=== PATIENT | male | born 1945 | race Hispanic/Latino ===

== ENCOUNTER 2016-09-25 14:49 | Inpatient (IN) | payer MEDICARE, OTHER ==
[2016-09-25 15:07] VITALS: BMI 24.3
--- NOTE | 2016-09-25 15:45 | ED PDOC ---
Arrival/HPI - General Chief Complaint: Weakness/Neurological Deficit Time Seen by Provider: 09/25/16 14:58 Historian: Patient, Nematologist (video photographer; Vincent [id number]) - History of Present Illness Narrative History of Present Illness (Text): 09/25/16 15:41 71yr old male presents today sent in by state worker for evaluation. pt denies any complaints. no CP or SOB. no vomiting/diarrhea. no abdominal pain. no dizziness or weakness. denies urinary symptoms. pt states a state worker came to his house and told him to go into the ambulance and come to the ER. Time/Duration: Prior to Arrival Past Medical History - Provider Review Nursing Documentation Reviewed: Yes - Travel History Have you recently traveled outside [place] w/in the past 3 mons?: No - Tetanus Immunization Tetanus Immunization: Unknown - Cardiac Hx Cardiac Disorders: Yes (HTN) - Musculoskeletal/Rheumatological Hx Falls: No - Psychiatric Hx Depression: No Hx Emotional Abuse: No Hx Physical Abuse: No Hx Substance Use: No - Suicidal Assessment Feels Threatened In Home Enviroment: No Family/Social History - Physician Review Nursing Documentation Reviewed: Yes Family/Social History: Unknown Family HX Smoking Status: Former Smoker Hx Alcohol Use: No Hx Substance Use: No Substance used: denies Hx Substance Use Treatment: No Allergies/Home Meds Allergies/Adverse Reactions: Allergies No Known Allergies Allergy (Verified 11/20/11 02:12) Review of Systems - Review of Systems Constitutional: absent: Fatigue, Fevers Respiratory: absent: SOB, Cough Cardiovascular: absent: Chest Pain, Palpitations Gastrointestinal: absent: Abdominal Pain, Nausea, Vomiting Genitourinary Male: absent: Dysuria Musculoskeletal: absent: Arthralgias, Back Pain, Neck Pain Skin: absent: Rash, Pruritis Neurological: absent: Headache, Dizziness Psychiatric: absent: Anxiety, Depression, Suicidal Ideation Physical Exam Vital Signs Reviewed: Yes Vital Signs Temp Pulse Resp BP Pulse Ox 09/25/16 17:24 93 H 18 118/70 98 09/25/16 15:08 98.8 F 103 H 18 114/71 100 Temperature: Afebrile Blood Pressure: Normal Pulse: Tachycardic Respiratory Rate: Normal Appearance: Positive for: Well-Appearing, Non-Toxic, Comfortable Pain Distress: None Mental Status: Positive for: Alert and Oriented X 3 - Systems Exam Head: Present: Atraumatic Mouth: Present: Moist Mucous Membranes Neck: Present: Normal Range of Motion Respiratory/Chest: Present: Clear to Auscultation, Good Air Exchange. No: Respiratory Distress, Accessory Muscle Use Cardiovascular: Present: Normal S1, S2, Tachycardic. No: Murmurs Abdomen: No: Tenderness, Distention Neurological: Present: GCS=15 Skin: Present: Warm, Dry, Normal Color. No: Rashes Psychiatric: Present: Alert, Oriented x 3 Medical Decision Making ED Course and Treatment: 09/25/16 16:06 71yr old male presents sent in by [employer] worker for inhabitable housing, no abdominal pain. no vomiting. pt denies any complaints. tachycardic on initial vitals. bp wnl. cbc; wnl cmp; bun; 22/cr1.2 cxr; no infiltrate or effusion UA: + leukocytes, + moderate bacteria blood cultures pending rocephin started IV for UTI. 09/25/16 18:[address] damian phelan; accepts admission. impression; UTI admit med/surg; - Lab Interpretations Lab Results: 09/25/16 16:40 09/25/16 16:40 Lab Results 09/25/16 17:20: Urine Color Yellow, Urine Appearance Clear, Urine pH 8.0, Ur Specific [place] 1.015, Urine Protein Trace H, Urine Glucose (UA) Negative, Urine Ketones Negative, Urine Blood Trace-intact H, Urine Nitrate Negative, Urine Bilirubin Negative, Urine Urobilinogen 0.2, Ur Leukocyte Esterase Trace H , Urine RBC 5 - 10, Urine WBC 2 - 5, Ur Epithelial Cells 1 - 3, Urine Bacteria Mod 09/25/16 16:40: WBC 9.0, RBC 4.40, Hgb 12.9 L, Hct 39.0 L, MCV 88.6, MCH 29.3, MCHC 33.1, RDW 14.9 H, Plt Count 236, MPV 9.5, Gran % 57.9, Lymph % (Auto) 29.7 , [place] % (Auto) 10.2 H, Eos % (Auto) 1.9, Baso % (Auto) 0.3, Gran # 5.23, Lymph # 2.7, [place] # 0.9 H, Eos # 0.2, Baso # 0.03 09/25/16 16:40: Sodium 143, Potassium 4.4, Chloride 102, Carbon Dioxide 31, Anion Gap 14, BUN 22 H, Creatinine 1.2, Est GFR ( Amer) > 60, Est GFR ( Non-Af Amer) 60, Random Glucose 147 H, Calcium 8.9, Total Bilirubin 0.6, AST 40 , ALT 29, Alkaline Phosphatase 124, Total Protein 7.7, Albumin 4.4, Globulin 3.3 , Albumin/Globulin Ratio 1.3 - RAD Interpretation Radiology Orders: 09/25/16 15:29 CHEST PORTABLE [RAD] Stat Disposition/Present on Arrival - Present on Arrival Any Indicators Present on Arrival: No History of DVT/PE: No History of Uncontrolled Diabetes: No Urinary Catheter: No History of Decub. Ulcer: No History Surgical Site Infection Following: None - Disposition Have Diagnosis and Disposition been Completed?: Yes Diagnosis: Urinary tract infection Disposition: HOSPITALIZED Disposition Time: 18:27 Patient Plan: Admission Patient Problems: Current Active Problems Problem Status Onset Urinary tract infection Acute Condition: FAIR Referrals: PCP,NO [Primary Care Provider] - Follow up with primary
[2016-09-25 17:01] LABS: BASO # 0.03 K/mm3 (0.0-2.0); BASO % 0.3 % (0.0-3.0); EOS # 0.2 (0.0-0.7); EOS % 1.9 % (1.5-5.0); GRAN # 5.23 (1.4-6.5); GRAN % 57.9 % (50.0-68.0); HEMOGLOBIN 12.9 gm/dL (14.0-18.0); LYMPH # 2.7 (1.2-3.4); LYMPH % 29.7 % (22.0-35.0); MEAN CELL VOLUME 88.6 fL (80.0-105.0); MEAN CORPUSCULAR HEMOGLOBIN 29.3 pg (25.0-35.0); MEAN CORPUSCULAR HGB CONC 33.1 g/dl (31.0-37.0); MEAN PLATELET VOLUME 9.5 fl (7.0-11.0); MONO # 0.9 (0.1-0.6); MONO % 10.2 % (1.0-6.0); PLATELET COUNT 236 10^3/uL (120.0-450.0); RED CELL DISTRIBUTION WIDTH 14.9 % (11.5-14.5)
[2016-09-25 17:08] LABS: ALB/GLOB RATIO 1.3 (1.1-1.8); ALBUMIN 4.4 g/dL (3.0-4.8); ALT/SGPT 29 U/L (7-56); AST/SGOT 40 U/L (15-59); BLOOD UREA NITROGEN 22 mg/dL (7-21); CALCIUM 8.9 mg/dL (8.4-10.5); GFR AFRICAN-AMERICAN > 60; GFR NON-AFRICAN AMERICAN 60
[2016-09-25 17:32] LABS: URINE APPEARANCE CLEAR (CLEAR); URINE BILIRUBIN NEGATIVE (NEGATIVE); URINE BLOOD TRACE-INTACT (NEGATIVE); URINE COLOR YELLOW (YELLOW); URINE GLUCOSE (UA) NEGATIVE (NEGATIVE); URINE LEUKOCYTE ESTERASE TRACE Leu/uL (NEGATIVE); URINE NITRATE NEGATIVE (NEGATIVE); URINE PROTEIN TRACE mg/dL (<30 mg/dL); URINE UROBILINOGEN 0.2 E.U./dL (<1 E.U./dL)
[2016-09-25 18:06] LABS: URINE BACTERIA MOD (NEG)
[2016-09-25] MEDS ORDERED: cefTRIAXone 1 gm 1 GM/100 ML BAG IVPB STA (18:47)
--- NOTE | 2016-09-25 20:46 | CARD ---
APPROVED REPORT EKG Measurement Heart [id number] <Conclusion> Normal sinus rhythm Biatrial enlargement Incomplete right bundle branch block Left ventricular hypertrophy with repolarization abnormality Abnormal ECG
--- NOTE | 2016-09-26 07:43 | RAD ---
HISTORY: social eval, COMPARISON: 04/07/2013. FINDINGS: LUNGS: The lungs are hyperinflated and there is peribronchial thickening with chronic changes in both lungs. No lobar pneumonia. PLEURA: No significant pleural effusion identified, no pneumothorax apparent. CARDIOVASCULAR: Normal. OSSEOUS STRUCTURES: No significant abnormalities. VISUALIZED UPPER ABDOMEN: Normal. OTHER FINDINGS: None. IMPRESSION: No acute findings. COPD.
--- NOTE | 2016-09-26 10:38 | CP.PCM.PN ---
Subjective - Date & Time of Evaluation Date of Evaluation: 09/26/16 Time of Evaluation: 02:00 - Subjective Subjective: S:Requested a sleeping pill. Has no other complaints. Denies CP,SOB. Medical record was reviewed. O: Last Vital Signs 3 Temp 98.2 F 09/25/16 22:11 Pulse 85 09/25/16 22:11 Resp 16 09/25/16 22:11 BP 125/86 09/25/16 22:11 Pulse Ox 95 09/25/16 19:58 Awake , alert, not in distress. A:Adjustment insomnia. P:Benadryl 25 mg po stat. Objective - Vital Signs/Intake and Output Vital Signs (last 24 hours): Temp Pulse Resp BP Pulse Ox 98.2 F 85 16 125/86 95 09/25/16 22:11 09/25/16 22:11 09/25/16 22:11 09/25/16 22:11 09/25/16 19:58 Intake and Output: 09/26/16 09/26/16 06:59 18:59 Intake Total 360 Balance 360
[2016-09-26] MEDS: cefTRIAXone 1 gm 1 GM/100 ML BAG IV SCH (14:58)
[2016-09-26] MEDS: Sodium Chloride 0.45% 1,000 ML IV SCH (14:59)
--- NOTE | 2016-09-27 05:24 | PN ---
DATE: 09/26/2016 SUBJECTIVE: The patient was seen this Sunday at noon hour in room 562, bed #1. He is sitting at the edge of the bed, somewhat unkempt with a long unshaven bailey. Seen and admitted yesterday by for urinary tract infection, altered mental status, back pain and pyelonephritis. He came to the emergency room at the insistence of the family and local case workers from [facility]. The patient was found to be in local [facility] in poor living conditions with poor personal hygiene and unkempt in a room that was equally poorly maintained. The patient was reportedly febrile, seen complaining with foul smell of odor of urine and back pain with right-sided CVA tenderness. Seen in the emergency room admitted with urinary tract infection suspected pyelonephritis. He was given a dose of antibiotics. Today, antibiotics continue with Rocephin and IV fluids. He was not taking any prior medications. PHYSICAL EXAMINATION GENERAL: He is awake and alert. Barely speaking, complaining of hoarse voice from not having spoken to anyone for several days. He has an voracious appetite and is eating . NECK: No nodes. Thyroid is not palpable. HEART: Not tachycardiac. LUNGS: Shows good aeration in right and left. EXTREMITIES: Shows no edema. IMPRESSION: 1. Altered mental status, unkempt and to self. 2. Urinary tract infection, suspected pyelonephritis. PLAN: Continue IV antibiotics and IV fluids for now. Await cultures, repeat urinalysis, morning labs. Continue IV fluids. Case discussed with counseling case manager, social science manager for disposition of plan. Isaac Cai MD
[2016-09-27 07:15] LABS: BASO # 0.05 K/mm3 (0.0-2.0); BASO % 0.6 % (0.0-3.0); EOS # 0.1 (0.0-0.7); EOS % 1.2 % (1.5-5.0); GRAN # 5.55 (1.4-6.5); GRAN % 64.7 % (50.0-68.0); HEMOGLOBIN 13.7 gm/dL (14.0-18.0); LYMPH # 2.1 (1.2-3.4); LYMPH % 24.2 % (22.0-35.0); MEAN CORPUSCULAR HEMOGLOBIN 29.2 pg (25.0-35.0); MEAN CORPUSCULAR HGB CONC 33.6 g/dl (31.0-37.0); MEAN PLATELET VOLUME 9.5 fl (7.0-11.0); MONO # 0.8 (0.1-0.6); MONO % 9.3 % (1.0-6.0); PLATELET COUNT 243 10^3/uL (120.0-450.0); RBC 4.69 10^6/uL (3.5-6.1); RED CELL DISTRIBUTION WIDTH 14.7 % (11.5-14.5); WHITE BLOOD COUNT 8.6 10^3/ul (4.5-11.0)
[2016-09-27 09:02] LABS: BLOOD UREA NITROGEN 19 mg/dL (7-21); CALCIUM 9.4 mg/dL (8.4-10.5); GFR AFRICAN-AMERICAN > 60; GFR NON-AFRICAN AMERICAN > 60
[2016-09-27 09:26] LABS: URINE BILIRUBIN NEGATIVE (NEGATIVE); URINE BLOOD SMALL (NEGATIVE); URINE GLUCOSE (UA) NEGATIVE (NEGATIVE); URINE LEUKOCYTE ESTERASE NEGATIVE Leu/uL (NEGATIVE); URINE NITRATE NEGATIVE (NEGATIVE); URINE PROTEIN TRACE mg/dL (<30 mg/dL); URINE UROBILINOGEN 0.2 E.U./dL (<1 E.U./dL)
[2016-09-27 09:29] LABS: URINE APPEARANCE CLEAR (CLEAR); URINE COLOR YELLOW (YELLOW)
[2016-09-27 09:45] LABS: URINE BACTERIA TRACE (NEG); URINE EPITHELIAL CELLS 0 - 2 /hpf (0-5); URINE WBC 0 - 2 /hpf (0-6)
[2016-09-27] MEDS: cefTRIAXone 1 gm 1 GM/100 ML BAG IV SCH (09:56)
[2016-09-27] MEDS: Sodium Chloride 0.45% 1,000 ML IV SCH (15:00)
[2016-09-28 07:46] VITALS: RESP 20
[2016-09-28] MEDS: cefTRIAXone 1 gm 1 GM/100 ML BAG IV SCH (10:14)
--- NOTE | 2016-09-28 13:13 | PN ---
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 He was admitted on the 25/09/2016 for a urinary tract infection, possible pyelonephritis. Social workers have found him to be very unkempt, as was his apartment at the local [facility], was rather filthy, smelling of urine. The patient himself was disheveled. The patient was admitted for treatment of his urinary tract infection and from [facility] evaluation of a possible pyelonephritis. Plans were also that upon discharge, he is to be sent to a subacute rehab facility for speech therapy, physical therapy, occupational therapy, and then possible long-term placement. Today, when seen, the patient is sitting up at bedside. He is awake, alert, and oriented. He is frustrated, though he is aware of being transferred tomorrow to the subacute care facility. He is having difficulty formulating questions, but seems to be concerned about the mode of transportation as well as his personal belongings being transported there. The patient was reassured as best I could. The director of [facility], the addiction social worker from [facility], [place] [facility], and a close friend who speaks [place] as a roll tester will be allowed to his apartment to gather up belongings. Of note, I contacted his ex- Mariluz and told her about his pending change of address. She was thankful. She will be keeping contact with him. This morning, the laboratory studies show the white blood cell count to be 8.6, hemoglobin and hematocrit were 13.7 and 40.8 respectively. Platelet count was 243. Sodium is 142, creatinine is 1.0, blood urea nitrogen is 19, potassium is 3.5. Blood cultures were negative and urine cultures were negative. His chest x-ray showed no acute disease, but was positive for COPD and his EKG shows biatrial enlargement and incomplete right bundle branch block, left ventricular hypertrophy, and regular sinus rhythm. We are continuing with his metoprolol 25 mg twice a day, nicotine patch once a day and lisinopril 10 mg once a day. His ceftriaxone has been discontinued and the patient is to be discharged to a subacute care facility in the morning. Omid Cai MD
[2016-09-28 18:12] VITALS: BP 150/92; PULSE 80; TEMP 97.6; O2SAT 90
--- NOTE | 2016-09-28 20:01 | HP ---
HISTORY OF PRESENT ILLNESS: The patient is a 71-year-old male who was admitted on 09/25/2016 with a urinary tract infection and suspect pyelonephritis. The patient was found to be living in very poor living conditions at the local [facility]. He was unkempt. His room and his clothing smelled of urine. He was reportedly febrile. He was complaining of foul smelling urine, low back pain, right sided CVA tenderness, and dysuria. This had been going on for about a week; therefore, a social welfare administrator from the office on visited the patient and strongly suggested hospitalization. The plan was also put into effect that the patient be discharged to a subacute rehab facility post discharge. PAST MEDICAL HISTORY: I have known the patient since 1985. He did have a problem with alcohol abuse and undergoing ETOH rehab in 1989. In 1990, he fell down an elevator shaft fracturing both legs. He was hospitalized at [facility]. He suffered a myocardial infarction at that time as well. He had been living at the local [facility] since 2005. In 2007, he suffered a cerebrovascular accident, which left him moderately expressively aphasic and with a gait disturbance. He is also known to have a history of low back pain, insomnia and coronary artery disease as mentioned above. He has not taken any alcoholic beverage for the past several years. He continues to smoke approximately 1 to 2 packs a day. He is , however his ex- keeps in contact with him. She was actually out shopping for clothes with him over the past weekend. I last saw the patient in office visit in 05/2016. ALLERGIES: THE PATIENT HAS NO KNOWN MEDICAL ALLERGIES. MEDICATIONS AT THE TIME OF ADMISSION: Included lorazepam 1 mg at bedtime, simvastatin 20 mg p.o. everyday, metoprolol succinate 25 mg p.o. everyday, amlodipine 5 mg p.o. everyday, temazepam 30 mg p.o. q.h.s., Aricept 10 mg p.o everyday. FAMILY HISTORY: Text. SOCIAL HISTORY: Text. REVIEW OF SYSTEMS: Text. PHYSICAL EXAMINATION: GENERAL: In 05/2016, he weighed 149 pounds and stood 72 inches tall. VITAL SIGNS: When seen in the emergency room his blood pressure was 114/71, heart rate 103, respirations were 18, and he was afebrile. HEENT: Examination of the head, eyes, ears, nose, and throat are unremarkable. The patient has a full long bailey. NECK: Supple with no lymphadenopathy. No goiter. LUNGS: Clear to auscultation and percussion. ABDOMEN: Soft and nontender. He had some CVA tenderness versus paralumbar tenderness from chronic back pain. EXTREMITIES: Free of cyanosis, clubbing or edema. NEUROLOGICALLY: He was awake, alert, and oriented. He had a moderate degree of expressive aphasia. His gait was halting. LABORATORY STUDIES: Revealed a white blood cell count of 9.0, hemoglobin was 12.9, hematocrit 39.0. Sodium was 143, potassium 4.4. Blood urea nitrogen was 22, creatinine 1.2. He had trace amount of urine in his blood and leukocyte esterase was also present. He had 2 to 5 white blood cells per high power field and 5 to 10 red blood cells for high power field. He had a moderate amount of bacteria in the urine. ASSESSMENT AND PLAN: So, the patient is admitted with urinary tract infection and possible pyelonephritis. He is to be treated with intravenous antibiotics and arrangements are to be made for a transfer to subacute care for occupational therapy and physical therapy after he has stabilized. Omid Cai MD
--- NOTE | 2016-09-29 21:43 | DS ---
SUMMARY: This is a 71-year-old man known to my office for sometime. The patient presented to the emergency room after being found at his residence in the local [facility]. The place was quite unkempt and disheveled. He was reportedly febrile at that time, reeking of foul smelling urine. He was admitted with urinary tract infection and possible right-sided pyelo was diagnosed and he was admitted. He was given IV fluids and antibiotics. Over the next two to three days, he improved dramatically. Cultures were unrevealing. His white count remained normal. Initial bacteria in urine resolved. He improved clinically, allowed the staff to help him with hygiene including hair cut and shaving his bailey. On the date of discharge, today, 09/28/2016, he looked and felt wonderful. He was awake, alert, more of his baseline in usual status and ready for discharge to subacute rehab facility. FINAL DISCHARGE DIAGNOSES: Urinary tract infection, suspected right-sided pyelonephritis; altered mental status; and protein-calorie malnutrition. Isaac Cai MD
== END 2016-09-28 19:57 | DRG 690 ==
LOC: ED 14:49 → ERH 18:48 → 5RNO 21:09
PROVIDERS: ADMIT Internal Medicine; ATTEND Internal Medicine
DX: N12 Tubulo-interstitial nephritis, not specified as acute or chronic (principal); J44.9 Chronic obstructive pulmonary disease, unspecified; I11.9 Hypertensive heart disease without heart failure; I45.10 Unspecified right bundle-branch block; F10.21 Alcohol dependence, in remission; F51.02 Adjustment insomnia; I25.10 Atherosclerotic heart disease of native coronary artery without angina pectoris; I25.2 Old myocardial infarction; I51.7 Cardiomegaly; I69.320 Aphasia following cerebral infarction; Z79.899 Other long term (current) drug therapy; F17.210 Nicotine dependence, cigarettes, uncomplicated; R40.2412 Glasgow coma scale score 13-15, at arrival to emergency department; Z87.81 Personal history of (healed) traumatic fracture; R41.82 Altered mental status, unspecified

== ENCOUNTER 2017-11-23 17:19 | Inpatient (IN) | payer MEDICARE, MEDICAID ==
--- NOTE | 2017-11-23 17:37 | ED PDOC ---
Arrival/HPI - General Time Seen by Provider: 11/23/17 17:23 Historian: Patient, Long Term, EMS EM Caveat: Dementia - History of Present Illness Narrative History of Present Illness (Text): 11/23/17 17:34 72 yo male with h/o HTN, COPD, Dementia, Major Depressive Disorder, Generalized Muscle Weakness, presents to the ED from [facility] due to a CXR that showed a Pneumothorax. As per Diya Dai RN, the Long Term reported that he was coughing a lot so they got an Xray and that's how it was discovered. No reported fever. PMD: Dr. Aguayo Past Medical History - Provider Review Nursing Documentation Reviewed: Yes - Tetanus Immunization Tetanus Immunization: Unknown - Cardiac Hx Hypertension: Yes - Pulmonary Hx Respiratory Disorders: No - Neurological HX Cerebrovascular Accident: Yes (expressive aphasia) - HEENT Hx HEENT Disorder: No - Renal Hx Renal Disorder: No - Endocrine/Metabolic Hx Endocrine Disorders: No - Hematological/Oncological Hx Blood Disorders: No - Integumentary Hx Dermatological Disorder: No - Musculoskeletal/Rheumatological Hx Falls: No - Gastrointestinal Hx Gastrointestinal Disorders: No - Genitourinary/Gynecological Hx Genitourinary Disorders: No - Psychiatric Hx Depression: No Hx Emotional Abuse: No Hx Physical Abuse: No Hx Substance Use: No - Suicidal Assessment Feels Threatened In Home Enviroment: No Family/Social History Family/Social History: Unknown Family HX Smoking Status: Former Smoker Hx Alcohol Use: No Hx Substance Use: No Substance used: denies Hx Substance Use Treatment: No Allergies/Home Meds Allergies/Adverse Reactions: Allergies No Known Allergies Allergy (Verified 11/20/11 02:12) Review of Systems - Review of Systems Systems not reviewed;Unavailable: Dementia Physical Exam Vital Signs Reviewed: Yes Vital Signs Temp Pulse Resp BP Pulse Ox 11/23/17 17:47 97.6 F 71 21 110/84 99 Temperature: Afebrile Blood Pressure: Normal Pulse: Regular Respiratory Rate: Normal Appearance: Positive for: Well-Appearing, Non-Toxic, Comfortable Pain Distress: None Mental Status: Positive for: Alert and Oriented X 3 - Systems Exam Head: Present: Atraumatic, Normocephalic Pupils: Present: PERRL Extroacular Muscles: Present: EOMI Conjunctiva: Present: Normal Mouth: Present: Moist Mucous Membranes Neck: Present: Normal Range of Motion Respiratory/Chest: Present: Clear to Auscultation, Good Air Exchange, Other ( decreased breathe sounds on left). No: Respiratory Distress, Accessory Muscle Use, Wheezes, Rales, Retracting, Rhonchi Cardiovascular: Present: Regular Rate and Rhythm, Normal S1, S2. No: Murmurs Abdomen: No: Tenderness, Distention, Peritoneal Signs Back: Present: Normal Inspection Upper Extremity: Present: Normal Inspection. No: Cyanosis, Edema Lower Extremity: Present: Normal Inspection. No: Edema Neurological: Present: GCS=15, CN II-XII Intact, Speech Normal Skin: Present: Warm, Dry, Normal Color. No: Rashes Psychiatric: Present: Alert, Oriented x 3, Normal Concentration Medical Decision Making ED Course and Treatment: 11/23/17 17:38 72 yo male with h/o COPD, HTN, Dementia, MDD, presents with Coughing and reported Pneumothorax -- STAT CXR -- Oxygen 2 L -- Labs 11/23/17 17:46 CXR: Left lower Pneumothorax Paged Transition Specialist and Dr. Aguayo. EKG: NSR at [address] elevations, nl intervals. 11/23/17 18:08 Chest X-ray reviewed by radiologist, shows: Approximately 40% left pneumothorax. Concordant results with the preliminary interpretation rendered by the emergency department physician\PA at the conclusion of the procedure. Procedure was completed at 17:32. Preliminary report provided by emergency department physician at 17:48. Final interpretation 18:01. 11/23/17 18:27 Case discussed with hvac residential service technician Vazquez who will come and see the patient. CT Chest ordered. Discussed case with Cardiothoracic Surgeon Dr. Vinayak Garcia who will follow the case with the Transition Specialist. Case discussed with Dr. Aguayo who will admit to her service. 11/23/17 19:01 CT Chest reviewed by radiologist, shows: Confirmation of pneumothorax identified on recent chest x-ray. There may be a slight component of tension as there is shift of mediastinal structures to the contralateral side. Additional benign and/or incidental findings described above. Critical results read protocol Findings conveyed to the referring physician in the emergency department. Study completed 18:36. Verbal results provided 18:54 Dr. Shukla, Transition Specialist, came to see patient and will complete Chest Tube after CT. 11/23/17 19:02 Case signed out to Dr. Escalera to follow up Transition Specialist plan. - Critical Care Critical Care Minutes: 30 minutes - Lab Interpretations Lab Results: 11/23/17 15:34 11/23/17 17:34 Lab Results 11/23/17 17:34: Sodium 141, Potassium 4.1, Chloride 106, Carbon Dioxide 28, Anion Gap 11, BUN 26 H, Creatinine 1.2, Est GFR ( Amer) > 60, Est GFR ( Non-Af Amer) 59, Random Glucose 103, Calcium 9.0, Magnesium 2.0 11/23/17 16:45: Blood Type Pending, Antibody Screen Pending, BBK History Checked No verified bt 11/23/17 15:34: PT 10.6, INR 0.93, APTT 32.7 11/23/17 15:34: WBC 9.4, RBC 4.58, Hgb 13.6 L, Hct 40.8 L, MCV 89.1, MCH 29.7, MCHC 33.3, RDW 13.6, Plt Count 265, MPV 9.6, Gran % 60.6, Lymph % (Auto) 27.3, [place] % (Auto) 9.9 H, Eos % (Auto) 1.9, Baso % (Auto) 0.3, Gran # 5.67, Lymph # ( Auto) 2.6, [place] # (Auto) 0.9 H, Eos # (Auto) 0.2, Baso # (Auto) 0.03 - RAD Interpretation Radiology Orders: 11/23/17 17:27 CHEST PORTABLE [RAD] Stat 11/23/17 18:19 CHEST W/O CONTRAST [CT] Stat Disposition/Present on Arrival - Present on Arrival Any Indicators Present on Arrival: No History of DVT/PE: No History of Uncontrolled Diabetes: No Urinary Catheter: No History Surgical Site Infection Following: None - Disposition Have Diagnosis and Disposition been Completed?: Yes Diagnosis: Pneumothorax on left Disposition: HOSPITALIZED Disposition Time: 17:47 Patient Plan: Admission Patient Problems: Current Active Problems Problem Status Onset Pneumothorax on left Acute Condition: GUARDED Referrals: La Aguayo MD [Primary Care Provider] - Follow up with primary
[2017-11-23 17:54] VITALS: BMI 21.9
--- NOTE | 2017-11-23 18:04 | RAD ---
Date of service: 11/23/2017 HISTORY: Shortness of breath COMPARISON: No prior. FINDINGS: LUNGS: No active pulmonary disease. PLEURA: Primarily basilar pneumothorax on the left. This is approximately 40% of left lung volume. No evidence of tension pneumothorax. CARDIOVASCULAR: No radiographic findings to suggest acute or significant cardiovascular disease. OSSEOUS STRUCTURES: No significant abnormalities. VISUALIZED UPPER ABDOMEN: Normal. OTHER FINDINGS: None. IMPRESSION: Approximately 40% left pneumothorax. Concordant results with the preliminary interpretation rendered by the emergency department physician procedure. Procedure was completed at 17:32. Preliminary report provided by emergency department physician at 17:48. Final interpretation 18:01.
[2017-11-23 18:07] LABS: INR 0.93; PARTIAL THROMBOPLASTIN TIME 32.7 Seconds (25.1-36.5); PROTHROMBIN TIME 10.6 SECONDS (9.4-12.5)
[2017-11-23 18:09] LABS: BASO # 0.03 K/mm3 (0.0-2.0); BASO % 0.3 % (0.0-3.0); EOS # 0.2 (0.0-0.7); EOS % 1.9 % (1.5-5.0); GRAN # 5.67 (1.4-6.5); GRAN % 60.6 % (50.0-68.0); HEMOGLOBIN 13.6 g/dL (14.0-18.0); LYMPH # 2.6 (1.2-3.4); LYMPH % 27.3 % (22.0-35.0); MEAN CELL VOLUME 89.1 fl (80.0-105.0); MEAN CORPUSCULAR HEMOGLOBIN 29.7 pg (25.0-35.0); MEAN CORPUSCULAR HGB CONC 33.3 g/dl (31.0-37.0); MEAN PLATELET VOLUME 9.6 fl (7.0-11.0); MONO # 0.9 (0.1-0.6); MONO % 9.9 % (1.0-6.0); RBC 4.58 10^6/uL (3.5-6.1); RED CELL DISTRIBUTION WIDTH 13.6 % (11.5-14.5); WHITE BLOOD COUNT 9.4 10^3/ul (4.5-11.0)
[2017-11-23 18:34] LABS: BLOOD UREA NITROGEN 26 mg/dL (7-21); GFR NON-AFRICAN AMERICAN 59
--- NOTE | 2017-11-23 18:57 | CT ---
Date of service: 11/23/2017 PROCEDURE: CT Chest without contrast HISTORY: pneumothorax rule out COMPARISON: November 23, 2017. Plain film radiographs documenting left pneumothorax. TECHNIQUE: Contiguous axial images were obtained through the chest without intravenous contrast enhancement. Sagittal and coronal reconstructions were performed. Radiation dose (DLP): 295.57 mGy-cm. This CT exam was performed using one or more of the following dose reduction techniques: Automated exposure control, adjustment of the mA and/or kV according to patient size, and/or use of iterative reconstruction technique. FINDINGS: LUNGS: The left lung is compressed by the 40-50% left pneumothorax. No additional underlying pulmonary abnormalities are apparent. There appears to be shift mediastinal structures to the right suggesting AA component of tension pneumothorax. Biapical scarring identified. MEDIASTINUM: Unremarkable thoracic aorta. No aneurysm. Normal sized heart. Main pulmonary artery unremarkable. No vascular congestion. No lymphadenopathy. PLEURA: No pleural fluid. No pneumothorax. BONES: No fracture. No destructive lesion. UPPER ABDOMEN: Grossly unremarkable. OTHER FINDINGS: None. IMPRESSION: Confirmation of pneumothorax identified on recent chest x-ray. There may be a slight component of tension as there is shift of mediastinal structures to the contralateral side. Additional benign and/or incidental findings described above. Critical results read protocol Findings conveyed to the referring physician in the emergency department. Study completed 18:36. Verbal results provided 18:54
[2017-11-23] MEDS ORDERED: Morphine 4 mg/ml ISec IVP STA (19:25)
--- NOTE | 2017-11-23 20:22 | CP.PCM.CON ---
<Blayne Escalera - Last Filed: 11/23/17 20:51> Meds Allergies/Adverse Reactions: Allergies Allergy/AdvReac Type Severity Reaction Status Date / Time No Known Allergies Allergy Verified 11/20/11 02:12 - Medications Medications: Current Medications Morphine Sulfate (Morphine) 2 mg IVP Q4H PRN PRN Reason: Pain, moderate (4-7) Results - Vital Signs Recent Vital Signs: Last Vital Signs Temp 97.6 F 11/23/17 19:18 Pulse 69 11/23/17 19:18 Resp 20 11/23/17 19:18 BP 144/57 L 11/23/17 19:18 Pulse Ox 96 11/23/17 19:18 - Labs Result Diagrams: 11/23/17 15:34 11/23/17 17:34 <Amelia Gardiner - Last Filed: 11/24/17 07:29> History of Present Illness - History of Present Illness History of Present Illness: Thoracic Surgery - Dr. Garcia 72M w/ hx of HTN, COPD, Dementia, Depression, who was brought to the ED from [facility] after CXR done there showed a Left Pneumothorax. Pt was reportedly developing a worsening cough at the [facility] and this is the reason that CXR was odrdered. Upon arrival to the ED pt was sent for CT to further evaluate the location of the Pneumothorax, CT showed a large left sided pneumothorax with mild shift of the mediastinum suggestive of developing tension. Surgery was called for chest tube placement. Patient was unable to give histroy d/t severe dementia. Review of Systems - Review of Systems Systems not reviewed;Unavailable: Altered Mental Status Past Patient History - Infectious Disease Hx of Infectious Diseases: None - Tetanus Immunizations Tetanus Immunization: Unknown - Past Social History Smoking Status: Former Smoker - CARDIAC Hx Hypertension: Yes - PULMONARY Hx Respiratory Disorders: No - NEUROLOGICAL HX Cerebrovascular Accident: Yes (expressive aphasia) - HEENT Hx HEENT Problems: No - RENAL Hx Chronic Kidney Disease: No - ENDOCRINE/METABOLIC Hx Endocrine Disorders: No - HEMATOLOGICAL/ONCOLOGICAL Hx Blood Disorders: No - INTEGUMENTARY Hx Dermatological Problems: No - MUSCULOSKELETAL/RHEUMATOLOGICAL Hx Falls: No - GASTROINTESTINAL Hx Gastrointestinal Disorders: No - GENITOURINARY/GYNECOLOGICAL Hx Genitourinary Disorders: No - PSYCHIATRIC Hx Depression: No Hx Emotional Abuse: No Hx Physical Abuse: No Hx Substance Use: No - SURGICAL HISTORY Hx Surgeries: No Meds - Medications Medications: Current Medications Morphine Sulfate (Morphine) 2 mg IVP Q4H PRN PRN Reason: Pain, moderate (4-7) Physical Exam - Constitutional Appears: No Acute Distress, Cachectic - Head Exam Head Exam: ATRAUMATIC, NORMOCEPHALIC - Respiratory Exam Respiratory Exam: Accessory Muscle Use, Decreased Breath Sounds, Respiratory Distress, NORMAL BREATHING PATTERN Additional comments: left side decreased breath sounds - Cardiovascular Exam Cardiovascular Exam: Tachycardia - Neurological Exam Neurological exam: Alert, Altered - Skin Skin Exam: Dry, Intact Results - Vital Signs Recent Vital Signs: Last Vital Signs Temp 97.6 F 11/23/17 19:18 Pulse 69 11/23/17 19:18 Resp 20 11/23/17 19:18 BP 144/57 L 11/23/17 19:18 Pulse Ox 96 11/23/17 19:18 - Labs Result Diagrams: 11/23/17 15:34 11/23/17 17:34 Assessment & Plan - Assessment and Plan (Free Text) Assessment: 72 yo M w/ spontaneous Left pneumothorax -CT with large pneumothorax, apical blebs -Chest tube placed, continue on low continuous suction -Pain control prn -Daily CXR -Will monitor and possibly plan for surgical bleb resection pending clinical course DW Dr. Jose Gardiner PGY4 Chest Tube Insertion - Chest Tube Placement Indication: Pneumothorax Consent Obtained: Implied D/T Emergency Situation Procedural Sedation: Morphine Procedure Description: Prepped W/Betadine, Sterile Drape Applied, Local Anes Used: Post Insertion Procedure(s): Tube Sutured To Chest Wall, CXR Completed To Confirm Placement, Tube Connected To Suction, No Air Leak Noted
--- NOTE | 2017-11-23 20:55 | CARD ---
APPROVED REPORT Date of service: 11/23/2017 EKG Measurement Heart [id number] [id number] <Conclusion> Normal sinus rhythm Normal ECG
--- NOTE | 2017-11-23 21:06 | ED PDOC ---
Physical Exam Vital Signs Reviewed: Yes Vital Signs Temp Pulse Resp BP Pulse Ox 11/23/17 19:18 97.6 F 69 20 144/57 L 96 11/23/17 17:47 97.6 F 71 21 110/84 99 Temperature: Afebrile Blood Pressure: Normal Pulse: Regular Respiratory Rate: Normal Appearance: Positive for: Well-Appearing, Non-Toxic, Comfortable Pain Distress: None Mental Status: Positive for: Alert and Oriented X 3 Medical Decision Making ED Course and Treatment: 11/23/17 19:20 Patient endorsed to me by Dr. Leach pending pending chest tube insertion by surgical device sales representative. Resident inserted tube, and X-ray has been repeated; Lung has expanded. Patient will be admitted to the floor. - Lab Interpretations Lab Results: 11/23/17 15:34 11/23/17 17:34 Lab Results 11/23/17 17:34: Sodium 141, Potassium 4.1, Chloride 106, Carbon Dioxide 28, Anion Gap 11, BUN 26 H, Creatinine 1.2, Est GFR ( Amer) > 60, Est GFR ( Non-Af Amer) 59, Random Glucose 103, Calcium 9.0, Magnesium 2.0 11/23/17 16:45: Blood Type O POSITIVE, Antibody Screen Negative, BBK History Checked No verified bt 11/23/17 15:34: PT 10.6, INR 0.93, APTT 32.7 11/23/17 15:34: WBC 9.4, RBC 4.58, Hgb 13.6 L, Hct 40.8 L, MCV 89.1, MCH 29.7, MCHC 33.3, RDW 13.6, Plt Count 265, MPV 9.6, Gran % 60.6, Lymph % (Auto) 27.3, [place] % (Auto) 9.9 H, Eos % (Auto) 1.9, Baso % (Auto) 0.3, Gran # 5.67, Lymph # ( Auto) 2.6, [place] # (Auto) 0.9 H, Eos # (Auto) 0.2, Baso # (Auto) 0.03 - RAD Interpretation Radiology Orders: 11/23/17 17:27 CHEST PORTABLE [RAD] Stat 11/23/17 18:19 CHEST W/O CONTRAST [CT] Stat - Medication Orders Current Medication Orders: Morphine Sulfate (Morphine) 2 mg IVP Q4H PRN PRN Reason: Pain, moderate (4-7) Discontinued Medications Morphine Sulfate (Morphine) 4 mg IVP STAT STA Stop: 11/23/17 19:26 Last Admin: 11/23/17 19:39 Dose: 4 mg MAR Pain Assessment Document 11/23/17 19:39 [facility] (Rec: 11/23/17 19:40 [facility] [id number]) Pain Reassessment Is this a pain reassessment? No Sleep Is patient sleeping during reassessment? No Presence of Pain Presence of Pain Yes Pain Scale Used Pain Scale Used Numeric IVP Administration Document 11/23/17 19:39 [facility] (Rec: 11/23/17 19:40 [facility] [id number]) Charges for Administration # of IVP Administrations 1 - Scribe Statement The provider has reviewed the documentation as recorded by the Scribe Js Dailey Provider Scribe Attestation: All medical record entries made by the Scribe were at my direction and personally dictated by me. I have reviewed the chart and agree that the record accurately reflects my personal performance of the history, physical exam, medical decision making, and the department course for this patient. I have also personally directed, reviewed, and agree with the discharge instructions and disposition. Disposition/Present on Arrival - Present on Arrival Any Indicators Present on Arrival: No History of DVT/PE: No History of Uncontrolled Diabetes: No Urinary Catheter: No History of Decub. Ulcer: No History Surgical Site Infection Following: None - Disposition Have Diagnosis and Disposition been Completed?: Yes Diagnosis: Pneumothorax on left Disposition: HOSPITALIZED Disposition Time: 21:00 Patient Plan: Admission Patient Problems: Current Active Problems Problem Status Onset Pneumothorax on left Acute Condition: GUARDED
[2017-11-24 01:06] LABS: IRON 50 ug/dL (45-180)
[2017-11-24 01:07] LABS: HDL CHOLESTEROL 57 mg/dL (29-60)
[2017-11-24] MEDS: Morphine 2 mg/ml ISec IVP PRN ×3 (01:15→16:33)
[2017-11-24 01:16] LABS: % IRON SATURATION 19 % (20-55); TOTAL IRON BINDING CAPACITY 268 ug/dL (261-462)
[2017-11-24 01:17] LABS: LDL CHOLESTEROL 75 mg/dL (0-129)
--- NOTE | 2017-11-24 06:52 | HP ---
CHIEF COMPLAINT: Coughing, shortness of breath, abnormal lung x-ray. HISTORY OF PRESENT ILLNESS: Mr. Teddy Perry is a 72-year-old male with a history of hypertension, COPD, dementia, major depressive episodes, generalized muscle weakness. Patient was a resident of [facility], was coughing, the chest x-ray shows pneumothorax. Then, I had a length of time discussion done with the nursing staff and finally we transferred the patient to emergency room. According to office staff, patient was coughing a lot, so they got an x-ray that shows that they discovered there is pneumothorax. No fever. No chills. No nausea, vomiting, or diarrhea. PAST MEDICAL HISTORY: Hypertension, expressive aphasia, dementia, depression, history of anemia, chronic obstructive pulmonary disease, major depressive episodes, and generalized muscle weakness. FAMILY HISTORY: Father and mother, noncontributory. SOCIAL HISTORY: Former smoker. No drug. No ethanol now. ALLERGIES: PATIENT IS NOT ALLERGIC WITH ANY MEDICATIONS. HOME MEDICATIONS: Reviewed by me. REVIEW OF SYSTEMS: Patient was examined on the bedside in the emergency room, looking comfortable except shortness of breath once in a while. No fever. No chills. No abdominal pain. No nausea, vomiting, or diarrhea. No headache. No dizziness. PHYSICAL EXAMINATION: VITAL SIGNS: Temperature 97.6, pulse 71, respiratory rate 21, blood pressure 110/84, pulse oximetry 99%. HEENT: Head: Normocephalic, atraumatic. Eyes: PERRLA. Extraocular muscles intact. Conjunctivae clear. Nose patent. NECK: Supple. No carotid bruit, JVD, or thyromegaly. CHEST: Bilaterally symmetrical. LUNGS: Clear to auscultation. Good air exchange. Decreased breath sounds on the left. EXTREMITIES: No edema. No cyanosis. NEUROLOGIC: Patient is awake and alert. Follows simple command. LABORATORY DATA: White blood cells 9.4, hemoglobin 13.2, hematocrit 40.8, platelets 265. Sodium 141, potassium 4.1, BUN 64, creatinine noted ASSESSMENT AND PLAN: CAT scan of the chest was done. History of hypertension, chronic obstructive pulmonary disease. Resident of [facility]. Showed left-sided pneumothorax. Actually, patient's chest x-ray was done because of shortness of breath and coughing. Patient has large pneumothorax with mild shift of the mediastinum suggestive of developing , Surgery was called for chest tube placement. Patient was not able to give the history, as he has severe dementia. Appreciated emergency room physician's notes. Repeat labs. We will follow up. La Aguayo MD MTDFermin
--- NOTE | 2017-11-24 07:32 | CP.PCM.PN ---
Subjective - Date & Time of Evaluation Date of Evaluation: 11/24/17 Time of Evaluation: 07:30 - Subjective Subjective: Thoracic Surgery - Dr. Garcia Pt S&E. NAEO. Pt resting comfortably this morning. He denies any pain at this time, no SOB. Chest tube in place to wall suction, no airleak, dressing c/ d/i. Objective - Vital Signs/Intake and Output Vital Signs (last 24 hours): Temp Pulse Resp BP Pulse Ox 98 F 78 18 127/54 L 94 L 11/24/17 00:01 11/24/17 02:00 11/24/17 00:01 11/24/17 00:01 11/24/17 00:01 Intake and Output: 11/24/17 11/24/17 06:59 18:59 Intake Total 0 Output Total 0 Balance 0 - Medications Medications: Current Medications Lisinopril (Zestril) 10 mg PO DAILY JUAN Metoprolol Tartrate (Lopressor) 25 mg PO BID JUAN Morphine Sulfate (Morphine) 2 mg IVP Q4H PRN PRN Reason: Pain, moderate (4-7) Last Admin: 11/24/17 01:15 Dose: 2 mg Nicotine (Nicoderm Cq) 1 patch TD DAILY JUAN - Labs Labs: PT 10.6 SECONDS (9.4-12.5) 11/23/17 15:34 INR 0.93 11/23/17 15:34 APTT 32.7 Seconds (25.1-36.5) 11/23/17 15:34 - Constitutional Appears: No Acute Distress - Head Exam Head Exam: ATRAUMATIC, NORMAL INSPECTION, NORMOCEPHALIC - Eye Exam Eye Exam: Normal appearance - Respiratory Exam Respiratory Exam: NORMAL BREATHING PATTERN. absent: Respiratory Distress - Cardiovascular Exam Cardiovascular Exam: REGULAR RHYTHM - Neurological Exam Neurological Exam: Alert, Altered - Skin Skin Exam: Dry, Intact Assessment and Plan - Assessment and Plan (Free Text) Assessment: 72M w/ spontaneous L PTX, s/p chest tube 11/23 -Continue chest tube to low cont. wall suction for 48hrs -Pain control PRN -Daily CXR -Dressing changes prn -Medical management as per primary DW Dr. Jose Gardiner PGY4
[2017-11-24 12:19] LABS: FOLATE > 20.0 ng/mL
--- NOTE | 2017-11-24 12:59 | RAD ---
Date of service: 11/23/2017 HISTORY: s/p chest tube insertion COMPARISON: 11/23/2017 at 5:32 p.m. FINDINGS: LUNGS: No active pulmonary disease. PLEURA: Very small residual left pneumothorax suspected at lateral base. Left chest tube. Please note that this suspected small pneumothorax could represent a skin fold. Follow-up advised. CARDIOVASCULAR: Normal. OSSEOUS STRUCTURES: No significant abnormalities. VISUALIZED UPPER ABDOMEN: Normal. OTHER FINDINGS: None. IMPRESSION: Left chest tube. Almost complete resolution of left pneumothorax with suspected small residual pneumothorax at lateral left base. Possible skin fold. Follow-up advised.
--- NOTE | 2017-11-24 13:05 | RAD ---
Date of service: 11/24/2017 HISTORY: comparison, s/p ches ttube COMPARISON: 11/23/2017 FINDINGS: LUNGS: No active pulmonary disease. PLEURA: Left chest tube. No pneumothorax identified. Suspected small pneumothorax at lateral left lung base has resolved. CARDIOVASCULAR: Normal. OSSEOUS STRUCTURES: No significant abnormalities. VISUALIZED UPPER ABDOMEN: Normal. OTHER FINDINGS: None. IMPRESSION: Left chest tube. No residual pneumothorax identified.
[2017-11-24] MEDS ORDERED: Albuterol-Ipratrop 3 mg / 0.5 (3 ml) UD IH PRN (17:55)
[2017-11-24] MEDS: Arformoterol 15 mcg/2 ml Inh Sol IH SCH (19:50)
[2017-11-24] MEDS: Budesonide 0.5 mg/2 ml Inhal Susp UD IH SCH (19:50)
[2017-11-24] MEDS: MethylPREDNISolone 40 mg Vial IVP SCH (21:26)
[2017-11-25] MEDS: Morphine 2 mg/ml ISec IVP PRN ×5 (01:20→20:33)
--- NOTE | 2017-11-25 05:45 | CON ---
DATE: 11/24/2017 PULMONARY CONSULTATION REFERRING PHYSICIAN: La Aguayo MD REASON FOR CONSULTATION: Coughing. HISTORY OF PRESENT ILLNESS: This is a 72-year-old gentleman with medical history significant for hypertension, COPD, dementia, major depressive disorder, general muscle weakness, dysphagia, has Gtube. He was brought to [facility] from [facility] for persistent coughing. Chest x-ray showed pneumothorax. Chest tube was placed to right side, with no air leak. Patient is lying in bed comfortably. Has cough, no sputum. No headache, chest pain, nausea, vomiting, leg pain, leg swelling reported. PAST MEDICAL HISTORY: As per history of present illness. FAMILY HISTORY: No significant cardiopulmonary problems reported. SOCIAL HISTORY: Former smoker. No drug or alcohol is reported. ALLERGIES: NONE KNOWN. MEDICATIONS: Nicotine patch daily, metoprolol 25 mg twice a day, lisinopril 10 mg daily, morphine sulfate for pain. REVIEW OF SYSTEMS: Patient was lying in bed comfortably. No acute distress. Feels okay. No overnight events reported. Chest tube to right side. No headache, chest pain, nausea, vomiting, leg pain, leg swelling reported. PHYSICAL EXAMINATION: VITAL SIGNS: Temperature 98.4, pulse 83, respirations 18, blood pressure 101/45. GENERAL: Lying in bed, in no acute distress. HEENT: Dry mucous membrane. Crowded airway. NECK: Supple. LUNGS: Fair airflow with few rhonchi. CARDIAC: S1, S2. ABDOMEN: G-tube site looks okay. Soft, nontender. No organomegaly. EXTREMITIES: No edema. NEUROLOGIC: Awake and alert. Follows commands. LABORATORY DATA: Results reviewed. Hemoglobin 13.6, hematocrit 40.8, WBC 9.4, platelet 265, triglycerides 106, cholesterol 162, LDL 75, HDL 57, iron 50, TIBC 268, iron saturation 19%. Vitamin B12 of 324. Folate greater than 20. DIAGNOSTIC DATA: Reviewed chest x-ray. Chest x-ray, left chest tube almost complete resolution of left hemothorax with suspected small residual hemothorax at the left lateral base, possible skin followup advised. CAT scan of the chest shows confirmation of pneumothorax. IMPRESSION AND PLAN: Pneumothorax requiring chest tube, chronic obstructive pulmonary disease, hypertension, dysphagia requiring Gtube. We will add inhaled bronchodilators, Brovana, Pulmicort twice a day. Also add Solu-Medrol 20 mg b.i.d. Keep head elevated at 45 degrees. Fall precaution. Patient is DNR/DNI. This patient was examined with Dr. Morgan and discussed assessment and plan as described above. Thank you for this consult and we will follow with you. Rocio Marquis APN Chino Morgan MD GEETHA
[2017-11-25] MEDS: Budesonide 0.5 mg/2 ml Inhal Susp UD IH SCH ×2 (08:01→20:32)
[2017-11-25] MEDS: Arformoterol 15 mcg/2 ml Inh Sol IH SCH ×4 (08:01→20:32)
[2017-11-25 08:04] LABS: HEMOGLOBIN 12.7 g/dL (14.0-18.0); MEAN CELL VOLUME 88.8 fl (80.0-105.0); MEAN CORPUSCULAR HEMOGLOBIN 28.9 pg (25.0-35.0); MEAN CORPUSCULAR HGB CONC 32.6 g/dl (31.0-37.0); MEAN PLATELET VOLUME 9.7 fl (7.0-11.0); RBC 4.39 10^6/uL (3.5-6.1); RED CELL DISTRIBUTION WIDTH 13.4 % (11.5-14.5); WHITE BLOOD COUNT 9.6 10^3/ul (4.5-11.0)
[2017-11-25 08:22] LABS: BLOOD UREA NITROGEN 27 mg/dL (7-21); CALCIUM 9.1 mg/dL (8.4-10.5); GFR NON-AFRICAN AMERICAN 54
--- NOTE | 2017-11-25 08:23 | CP.PCM.PN ---
Subjective - Date & Time of Evaluation Date of Evaluation: 11/25/17 Time of Evaluation: 08:19 - Subjective Subjective: Thoracic Surgery Dr. Garcia Pt S&E @bedside. no acute events overnight. pt demented at baseline. admits to chest discomfort. Objective - Vital Signs/Intake and Output Vital Signs (last 24 hours): Temp Pulse Resp BP Pulse Ox 98.4 F 76 19 123/75 95 11/25/17 05:22 11/25/17 05:22 11/25/17 05:22 11/25/17 05:22 11/25/17 05:22 Intake and Output: 11/25/17 11/25/17 06:59 18:59 Intake Total 240 Output Total 16 Balance 224 - Medications Medications: Current Medications Albuterol/Ipratropium (Duoneb 3 Mg/0.5 Mg (3 Ml) Ud) 3 ml IH Q2H PRN PRN Reason: Shortness of Breath Arformoterol Tartrate (Brovana) 15 mcg IH [id number] [facility] Last Admin: 11/25/17 08:01 Dose: 15 mcg Arformoterol Tartrate (Brovana) 15 mcg IH [id number] [facility] Last Admin: 11/25/17 08:01 Dose: 15 mcg Budesonide (Pulmicort Respules) 0.5 mg IH [id number] [facility] Last Admin: 11/25/17 08:01 Dose: 0.5 mg Lisinopril (Zestril) 10 mg PO DAILY [facility] Last Admin: 11/24/17 13:37 Dose: Not Given Methylprednisolone (Solu-Medrol) 20 mg IVP Q12 [facility] Last Admin: 11/24/17 21:26 Dose: 20 mg Metoprolol Tartrate (Lopressor) 25 mg PO BID [facility] Last Admin: 11/24/17 18:22 Dose: Not Given Morphine Sulfate (Morphine) 2 mg IVP Q4H PRN PRN Reason: Pain, moderate (4-7) Last Admin: 11/25/17 05:41 Dose: 2 mg Nicotine (Nicoderm Cq) 1 patch TD DAILY [facility] Last Admin: 11/24/17 09:51 Dose: 1 patch - Labs Labs: 11/25/17 07:00 PT 10.6 SECONDS (9.4-12.5) 11/23/17 15:34 INR 0.93 11/23/17 15:34 APTT 32.7 Seconds (25.1-36.5) 11/23/17 15:34 - Constitutional Appears: Non-toxic, No Acute Distress - Head Exam Head Exam: NORMAL INSPECTION - Eye Exam Eye Exam: Normal appearance - ENT Exam ENT Exam: Mucous Membranes Moist - Respiratory Exam Respiratory Exam: NORMAL BREATHING PATTERN. absent: Accessory Muscle Use, Respiratory Distress Additional comments: L chest tube in place, on sxn. no leak - Cardiovascular Exam Cardiovascular Exam: REGULAR RHYTHM. absent: Bradycardia, Tachycardia - GI/Abdominal Exam GI & Abdominal Exam: Soft. absent: Distended, Tenderness - Extremities Exam Extremities Exam: Normal Inspection - Neurological Exam Neurological Exam: Alert, Awake - Psychiatric Exam Psychiatric exam: Normal Affect, Normal Mood - Skin Skin Exam: Dry, Normal Color, Warm Assessment and Plan - Assessment and Plan (Free Text) Assessment: 72 y/o M w/ spontaneous L PTX, s/p chest tube 11/23 - Chest tub eplaced to water seal - f/u CXR - cont pain management PRN - Dressing changes prn - Medical management as per primary Pt discussed w/ Dr. Jose Torres DO PGY3
[2017-11-25] MEDS: MethylPREDNISolone 40 mg Vial IVP SCH ×2 (10:44→21:25)
--- NOTE | 2017-11-25 11:50 | RAD ---
Date of service: 11/25/2017 HISTORY: LCT to water seal @7am COMPARISON: 11/25/2017 at 5:49 a.m. FINDINGS: LUNGS: No active pulmonary disease. PLEURA: Left chest tube. Small apical pneumothorax unchanged in size from earlier examination. No pleural effusion. CARDIOVASCULAR: Normal. OSSEOUS STRUCTURES: No significant abnormalities. VISUALIZED UPPER ABDOMEN: Normal. OTHER FINDINGS: None. IMPRESSION: Small left apical pneumothorax. Left chest tube.
--- NOTE | 2017-11-25 11:52 | RAD ---
Date of service: 11/25/2017 HISTORY: comparison, s/p ches ttube COMPARISON: 11/24/2017 FINDINGS: LUNGS: No active pulmonary disease. PLEURA: Left chest tube unchanged in position. Small left apical pneumothorax persists. No pleural effusion. CARDIOVASCULAR: Normal. OSSEOUS STRUCTURES: No significant abnormalities. VISUALIZED UPPER ABDOMEN: Normal. OTHER FINDINGS: None. IMPRESSION: Persistent small left apical pneumothorax. Left chest tube unchanged.
--- NOTE | 2017-11-25 20:55 | PN ---
DATE: 11/25/2017 PULMONARY PROGRESS NOTE REFERRING PHYSICIAN: aL Aguayo MD. SUBJECTIVE: He is lying in the bed, head at 45 degrees. Still has some cough. No sputum production. Has a left-sided chest tube. No air leak noted. No nausea, no vomiting, no diarrhea. No leg pain or leg swelling. PHYSICAL EXAMINATION: GENERAL: In no acute distress. VITAL SIGNS: Temperature is 98, heart rate 74, respiratory rate is 17, blood pressure 120/71, pulse ox 96% on nasal cannula. HEENT: Moist mucous membranes. No ulcer or thrush noted. NECK: Supple. No JVD. LUNGS: Have a scattered rhonchi, a few wheezing. Left-sided chest tube. HEART: S1, S2. ABDOMEN: Soft, nontender. No organomegaly. EXTREMITIES: There is no edema. NEUROLOGIC: Awake, alert, and follows simple commands. MEDICATIONS: He is on Brovana inhaled twice a day, also getting DuoNeb every 2 hours p.r.n., metoprolol tartrate 25 mg twice a day, morphine 2 mg every 4 hours p.r.n., Nicoderm patch daily, Pulmicort inhaled twice a day, Solu-Medrol 20 mg twice a day, and Zestril 10 mg daily. LABORATORY DATA: Shows hemoglobin 12.7, hematocrit 39, WBC 9.6, platelet is 257. Sodium 141, potassium 4.5, chloride 106, bicarbonate 27, BUN 27, creatinine 1.3, glucose 120, calcium is 9.1. Iron is 50. B12 is 324. Folate is more than 20. Microbiology: Blood culture, so far, there is no growth. Chest x-ray done today shows small apical pneumothorax still present. IMPRESSION AND PLAN: Pneumothorax, chronic obstructive lung disease, hypertension, . Keep chest tube on suction. Continue IV and inhaled bronchodilator. We will add doxycycline 100 mg twice a day. Follow up x-ray in the morning. Surgical followup. Thank you and we will follow with you. Chino Morgan MD [facility]ITAL[facility]ermin
[2017-11-26] MEDS: Morphine 2 mg/ml ISec IVP PRN ×2 (00:20→10:19)
--- NOTE | 2017-11-26 02:51 | PN ---
DATE: 11/25/2017 SUBJECTIVE: The patient is seen and examined at bedside on 11/25/2017. The patient is looking comfortable, having a chest tube, having lunch. No fever, no chills. No headache, no dizziness. No hematuria or hematochezia. Complaining sometime chest pain. PHYSICAL EXAMINATION VITAL SIGNS: Temperature 97.7, pulse 81, blood pressure 105/56, respiratory rate 15. HEENT: Head is normocephalic and atraumatic. Eyes: PERRLA. Extraocular muscles are intact. Conjunctivae are clear. Nose is patent. Mucous membranes are moist. NECK: Supple. CHEST: Clear to auscultation. Has chest tube. HEART: S1 and S2 positive. ABDOMEN: Soft, bowel sounds present. No organomegaly. EXTREMITIES: No edema. No cyanosis. NEUROLOGIC: The patient is awake and alert. Follows simple commands. MEDICATIONS: Brovana, doxycycline, DuoNeb, Lopressor, Morphine, NicoDerm, Pulmicort, Solu-Medrol, Zestril. LABORATORY DATA: White blood cell 9.6, hemoglobin 12.7, hematocrit 39, platelets 257. Sodium 141, potassium 4.5, BUN 27, creatinine 1.3, glucose 120. Iron saturation 19. ASSESSMENT AND PLAN: Mr. Teddy Perry is a 72-year-old male with anemia, hyperglycemia, iron deficiency, has pneumothorax, chronic obstructive lung disease, hypertension, oropharyngeal dysphagia requiring gastrotomy tube, chest tube is on suction. Continue IV and inhaled bronchodilators. Dr. Morgan added doxycycline. Getting steroids. Surgery is on the case. CAT scan of the chest reviewed. GI and DVT prophylaxis. Repeat labs. We will follow. La Aguayo MD
[2017-11-26 07:17] LABS: HEMOGLOBIN 13.3 g/dL (14.0-18.0); MEAN CELL VOLUME 89.4 fl (80.0-105.0); MEAN CORPUSCULAR HEMOGLOBIN 29.3 pg (25.0-35.0); MEAN CORPUSCULAR HGB CONC 32.8 g/dl (31.0-37.0); MEAN PLATELET VOLUME 9.9 fl (7.0-11.0); RBC 4.54 10^6/uL (3.5-6.1); RED CELL DISTRIBUTION WIDTH 13.6 % (11.5-14.5); WHITE BLOOD COUNT 15.2 10^3/ul (4.5-11.0)
[2017-11-26 07:46] LABS: BLOOD UREA NITROGEN 40 mg/dL (7-21); CALCIUM 9.5 mg/dL (8.4-10.5); GFR NON-AFRICAN AMERICAN 54
[2017-11-26] MEDS: Arformoterol 15 mcg/2 ml Inh Sol IH SCH ×4 (08:04→20:12)
[2017-11-26] MEDS: Budesonide 0.5 mg/2 ml Inhal Susp UD IH SCH ×2 (08:04→20:12)
--- NOTE | 2017-11-26 08:43 | RAD ---
Date of service: 11/26/2017 HISTORY: Status post chest tube. Comparison. COMPARISON: No prior. FINDINGS: LUNGS: Re demonstrated is in situ left-sided chest tube, with small residual left apical pneumothorax. Small amount subcutaneous air over the left chest wall is also present. Suspect mild left basilar atelectasis. PLEURA: No significant pleural effusion identified, no pneumothorax apparent. CARDIOVASCULAR: Normal. OSSEOUS STRUCTURES: No significant abnormalities. VISUALIZED UPPER ABDOMEN: Normal. OTHER FINDINGS: None. IMPRESSION: Re demonstrated is in situ left-sided chest tube, with small residual left apical pneumothorax. Small amount subcutaneous air over the left chest wall is also present. Suspect mild left basilar atelectasis.
[2017-11-26] MEDS: MethylPREDNISolone 40 mg Vial IVP SCH ×2 (10:20→21:27)
--- NOTE | 2017-11-26 13:54 | CP.PCM.PN ---
Subjective - Date & Time of Evaluation Date of Evaluation: 11/26/17 Time of Evaluation: 13:53 - Subjective Subjective: CT surgery Progress Note for Dr. Garcia This 72M was seen and examined this AM at bedside no acute events overnight. He denies any SOB or chest pain. He has minimal output fron chest tube, small apical pneumo on cxr after 24 hours on water seal. Objective - Vital Signs/Intake and Output Vital Signs (last 24 hours): Temp Pulse Resp BP Pulse Ox 97.5 F L 62 20 123/64 95 11/26/17 12:00 11/26/17 12:00 11/26/17 12:00 11/26/17 12:00 11/26/17 06:00 Intake and Output: 11/26/17 11/26/17 06:59 18:59 Intake Total 1860 Output Total 552 Balance 1308 - Medications Medications: Current Medications Albuterol/Ipratropium (Duoneb 3 Mg/0.5 Mg (3 Ml) Ud) 3 ml IH Q2H PRN PRN Reason: Shortness of Breath Arformoterol Tartrate (Brovana) 15 mcg IH [id number] [facility] Last Admin: 11/26/17 08:04 Dose: 15 mcg Arformoterol Tartrate (Brovana) 15 mcg IH [id number] [facility] Last Admin: 11/26/17 08:04 Dose: Not Given Budesonide (Pulmicort Respules) 0.5 mg IH [id number] [facility] Last Admin: 11/26/17 08:04 Dose: 0.5 mg Doxycycline Hyclate (Doryx) 100 mg PO Q12 [facility] PRN Reason: Protocol Last Admin: 11/26/17 10:20 Dose: 100 mg Lisinopril (Zestril) 10 mg PO DAILY [facility] Last Admin: 11/26/17 10:20 Dose: 10 mg Methylprednisolone (Solu-Medrol) 20 mg IVP Q12 [facility] Last Admin: 11/26/17 10:20 Dose: 20 mg Metoprolol Tartrate (Lopressor) 25 mg PO BID [facility] Last Admin: 11/26/17 10:21 Dose: 25 mg Morphine Sulfate (Morphine) 2 mg IVP Q4H PRN PRN Reason: Pain, moderate (4-7) Last Admin: 11/26/17 10:19 Dose: 2 mg Nicotine (Nicoderm Cq) 1 patch TD DAILY [facility] Last Admin: 11/26/17 10:21 Dose: 1 patch - Labs Labs: 11/26/17 06:30 11/26/17 06:30 PT 10.6 SECONDS (9.4-12.5) 11/23/17 15:34 INR 0.93 11/23/17 15:34 APTT 32.7 Seconds (25.1-36.5) 11/23/17 15:34 - Constitutional Appears: Non-toxic, No Acute Distress - Head Exam Head Exam: ATRAUMATIC, NORMOCEPHALIC - Eye Exam Eye Exam: EOMI, Normal appearance - ENT Exam ENT Exam: Mucous Membranes Moist - Respiratory Exam Respiratory Exam: NORMAL BREATHING PATTERN - Cardiovascular Exam Cardiovascular Exam: +S1, +S2 - GI/Abdominal Exam GI & Abdominal Exam: Soft. absent: Firm, Guarding, Rigid, Tenderness - Neurological Exam Neurological Exam: Alert, Awake - Psychiatric Exam Psychiatric exam: Normal Affect, Normal Mood - Skin Skin Exam: Dry, Intact Assessment and Plan - Assessment and Plan (Free Text) Assessment: 72M with spontaneous pneumothorax D/C Chest tube repeat CXR D/W Dr. Jose Jeffrey PGY3
--- NOTE | 2017-11-26 21:59 | PN ---
DATE: 11/26/2017 PULMONARY PROGRESS NOTE REFERRING PHYSICIAN: Dr. Aguayo SUBJECTIVE: He is sitting side of the bed having dinner. Chest tube has been removed. Feels okay. Mild cough. No nausea, no vomiting, no diarrhea. No leg pain or leg swelling. OBJECTIVE: GENERAL: In no acute distress. VITAL SIGNS: Temp is 98, heart rate is 82, respiratory rate is 20, blood pressure 124/69, pulse ox 95% on nasal cannula. HEENT: Moist mucous membranes. No ulcer or thrush noted. NECK: Supple. No JVD. LUNGS: Have decreased breath sounds at bases. HEART: S1 and S2. ABDOMEN: Soft, nontender. No organomegaly. EXTREMITIES: No edema. NEUROLOGIC: Awake and alert, follows simple command. MEDICATIONS: He is on Brovana inhaled twice a day, doxycycline 100 mg twice a day, DuoNeb every 2 hours p.r.n., metoprolol tartrate 25 mg twice a day, Nicoderm patch daily, Pulmicort inhaled twice a day, Solu-Medrol 20 mg twice a day, Tylenol p.r.n., Ultram 50 mg every 6 hours p.r.n., Zestril 10 mg daily. LABORATORY DATA: Shows hemoglobin 13.3, hematocrit 40.6, WBC 15.2, platelet is 295. Sodium 140, potassium 4.7, chloride 103, bicarbonate 26, BUN 40, creatinine 1.3, glucose is 110, calcium is 9.5. TSH 0.57. Microbiology, blood culture has been negative. Chest x-ray done this morning still shows small apical pneumothorax. IMPRESSION AND PLAN: Pneumothorax, chronic obstructive lung disease, oropharyngeal dysphagia, history of gastrostomy tube, on p.o. diet. Chest tube has been removed. We will continue IV and inhaled bronchodilator. Continue antibiotics. Follow up chest x-ray to assure the stability of pneumothorax. Thank you and we will follow with you. Chino Morgan MD
--- NOTE | 2017-11-27 00:58 | PN ---
DATE: 11/26/2017 SUBJECTIVE: The patient was seen and examined on 11/26/2017. We are doing progress note on 11/26/2017. No nausea, vomiting, diarrhea. No hematuria. No hematochezia. No swelling of the legs. Chest tube is replaced by the medical educator. No fever. No chills. PHYSICAL EXAMINATION: VITAL SIGNS: Temperature 98, heart rate 82, respiratory rate 20, blood pressure 124/69, pulse oximetry 98. HEENT: Head normocephalic, atraumatic. Eyes PERRLA. Extraocular muscles intact. Conjunctivae clear. Nose patent. NECK: Supple. No carotid bruit. No JVD or thyromegaly. CHEST: Bilaterally symmetrical. HEART: S1 and S2 positive. LUNGS: Clear to auscultation. ABDOMEN: Soft. Bowel sounds positive. No organomegaly. EXTREMITIES: No edema. No cyanosis. NEUROLOGICAL: The patient is awake and alert. Moving all 4 extremities. No focal deficits. MEDICATIONS: Brovana, doxycycline, DuoNeb, metoprolol, Nicoderm patch, Pulmicort inhaled, Solu-Medrol, Tylenol, tramadol, Zestril. ASSESSMENT AND PLAN: Mr. Teddy Perry, 72-year-old male with pneumothorax, chronic obstructive lung disease, oropharyngeal distress, history of gastrostomy tube. Chest tube has been removed. We will continue him on IV antibiotics, inhaled and other bronchodilators. Continue antibiotics as per Infectious Disease. Gastrointestinal, deep venous thrombosis prophylaxis. Repeat labs. We will follow up. La Aguayo MD
[2017-11-27] MEDS: Arformoterol 15 mcg/2 ml Inh Sol IH SCH ×4 (07:36→19:57)
[2017-11-27] MEDS: Budesonide 0.5 mg/2 ml Inhal Susp UD IH SCH ×2 (07:36→19:57)
--- NOTE | 2017-11-27 09:06 | RAD ---
HISTORY: Post chest tube pull COMPARISON: Chest x-ray performed 11/26/17 at 550 hr. TECHNIQUE: Chest, one view. FINDINGS: Interval removal of left-sided chest tube. LUNGS: Persistent small left apical pneumothorax measuring approximately 1.8 cm from pleural edge. Hyperinflation may be seen in setting of COPD. Small left pleural effusion. Mild left basilar atelectasis/infiltrate. CARDIOVASCULAR: Heart size appears OSSEOUS STRUCTURES: Degenerative changes. VISUALIZED UPPER ABDOMEN: Unremarkable. OTHER FINDINGS: Subcutaneous emphysema. IMPRESSION: Interval removal of left-sided chest tube. Persistent small left apical pneumothorax measuring approximately 1.8 cm from pleural edge. Hyperinflation may be seen in setting of COPD. Small left pleural effusion. Mild left basilar atelectasis/infiltrate. Subcutaneous emphysema.
--- NOTE | 2017-11-27 09:31 | CP.PCM.PN ---
Subjective - Date & Time of Evaluation Date of Evaluation: 11/27/17 Time of Evaluation: 09:17 - Subjective Subjective: Cardiothoracic Progress Note This 72M was seen and examined this Am at bedside no acute events overnight. Denies SOB or chest pain. Objective - Vital Signs/Intake and Output Vital Signs (last 24 hours): Temp Pulse Resp BP Pulse Ox 97.5 F L 77 18 112/55 L 95 11/27/17 06:00 11/27/17 06:00 11/27/17 06:00 11/27/17 06:00 11/27/17 06:00 Intake and Output: 11/27/17 11/27/17 06:59 18:59 Intake Total 740 Balance 740 - Medications Medications: Current Medications Acetaminophen (Tylenol 325mg Tab) 650 mg PO Q4 PRN PRN Reason: Pain, moderate (4-7) Albuterol/Ipratropium (Duoneb 3 Mg/0.5 Mg (3 Ml) Ud) 3 ml IH Q2H PRN PRN Reason: Shortness of Breath Arformoterol Tartrate (Brovana) 15 mcg IH [id number] [facility] Last Admin: 11/27/17 07:36 Dose: 15 mcg Arformoterol Tartrate (Brovana) 15 mcg IH [id number] [facility] Last Admin: 11/27/17 07:36 Dose: Not Given Budesonide (Pulmicort Respules) 0.5 mg IH [id number] [facility] Last Admin: 11/27/17 07:36 Dose: 0.5 mg Doxycycline Hyclate (Doryx) 100 mg PO Q12 [facility]; Protocol Last Admin: 11/26/17 21:26 Dose: 100 mg Lisinopril (Zestril) 10 mg PO DAILY [facility] Last Admin: 11/26/17 10:20 Dose: 10 mg Methylprednisolone (Solu-Medrol) 20 mg IVP Q12 [facility] Last Admin: 11/26/17 21:27 Dose: 20 mg Metoprolol Tartrate (Lopressor) 25 mg PO BID [facility] Last Admin: 11/26/17 17:47 Dose: 25 mg Nicotine (Nicoderm Cq) 1 patch TD DAILY [facility] Last Admin: 11/26/17 10:21 Dose: 1 patch Tramadol HCl (Ultram) 50 mg PO Q6H PRN PRN Reason: Pain, severe (8-10) Last Admin: 11/26/17 21:26 Dose: 50 mg - Labs Labs: 11/26/17 06:30 11/26/17 06:30 PT 10.6 SECONDS (9.4-12.5) 11/23/17 15:34 INR 0.93 11/23/17 15:34 APTT 32.7 Seconds (25.1-36.5) 11/23/17 15:34 - Constitutional Appears: Non-toxic, In Acute Distress - Head Exam Head Exam: ATRAUMATIC, NORMOCEPHALIC - Eye Exam Eye Exam: EOMI - ENT Exam ENT Exam: Mucous Membranes Moist - Respiratory Exam Respiratory Exam: NORMAL BREATHING PATTERN - Cardiovascular Exam Cardiovascular Exam: +S1, +S2 - GI/Abdominal Exam GI & Abdominal Exam: Soft. absent: Guarding, Rigid, Tenderness - Neurological Exam Neurological Exam: Alert, Awake - Psychiatric Exam Psychiatric exam: Normal Affect, Normal Mood - Skin Skin Exam: Dry, Intact Assessment and Plan - Assessment and Plan (Free Text) Assessment: 72M with spontaneous pneumothorax S/P chest tube pull and doing well No further surgical managment at this time D/W Dr. Jose Jeffrey PGY3
[2017-11-27] MEDS: MethylPREDNISolone 40 mg Vial IVP SCH ×2 (10:30→21:37)
--- NOTE | 2017-11-27 16:12 | RAD ---
HISTORY: pneumo COMPARISON: Chest x-ray performed 11/26/17 TECHNIQUE: Chest PA and lateral FINDINGS: Nondiagnostic lateral view. LUNGS: Hyperinflation may be seen in the setting of COPD. No focal consolidation. Increased lucencies especially within the bilateral upper lung pressley compatible with underlying emphysema. PLEURA: No significant pleural effusion identified. Persistent small left apical pneumothorax. CARDIOVASCULAR: Heart size appears within normal limits. Atherosclerotic calcification of the aortic knob. OSSEOUS STRUCTURES: Degenerative changes. VISUALIZED UPPER ABDOMEN: Unremarkable. OTHER FINDINGS: Subcutaneous emphysema, left lateral chest wall. IMPRESSION: Persistent small left apical pneumothorax.
--- NOTE | 2017-11-27 17:56 | PN ---
DATE: 11/27/2017 PULMONARY PROGRESS NOTE REFERRING PHYSICIAN: La Aguayo MD SUBJECTIVE: He is lying in the bed, sleepy, arousable. Night was unremarkable. Chest tube was removed. Mild cough. No sputum production. No nausea, vomiting, or diarrhea. No leg pain or leg swelling. OBJECTIVE GENERAL: In no acute distress. VITAL SIGNS: Temp is 98, heart rate is 82, respiratory rate is 18, blood pressure 138/85. HEENT: Moist mucous membranes. No ulcer or thrush noted. NECK: Supple. No JVD. LUNGS: Have a few scattered rhonchi. HEART: S1 and S2. ABDOMEN: Soft, nontender. No organomegaly. EXTREMITIES: No edema. NEUROLOGIC: Sleepy, arousable. Follows simple command. MEDICATIONS: He is on Brovana inhaled twice a day, doxycycline 100 mg twice a day, DuoNeb every 2 hours p.r.n., metoprolol tartrate 25 mg twice a day, Nicoderm patch daily, Pulmicort inhaled twice a day, Solu-Medrol 20 mg twice a day, Tylenol p.r.n., Ultram 50 mg every 6 hours p.r.n., Zestril 10 mg daily. LABORATORY DATA: Reviewed and no new lab is available since yesterday. Microbiology: Blood culture has been negative. Chest x-ray done yesterday after taking the chest tube out, still shows small pneumothorax in the apical area. IMPRESSION AND PLAN: Pneumothorax, chronic obstructive lung disease, oropharyngeal dysphagia, dementia, chest tube has been removed since yesterday, has a small residual pneumothorax, clinically stable. Continue IV and inhaled bronchodilator. We will order PA, lateral chest x-ray to assure the stability of pneumothorax. Fall precaution. Thank you and we will follow with you. Chino Morgan MD
[2017-11-28 05:48] VITALS: O2SAT 97
[2017-11-28] MEDS: Arformoterol 15 mcg/2 ml Inh Sol IH SCH ×2 (07:17→13:58)
[2017-11-28] MEDS: Budesonide 0.5 mg/2 ml Inhal Susp UD IH SCH (07:17)
--- NOTE | 2017-11-28 09:01 | PN ---
DATE: 11/27/2017 The patient is a 72-year-old male. SUBJECTIVE: The patient was seen and examined at the bedside on 11/27/2017. He is sleepy, arousable, moving all four extremities. Chest tube was removed. Mild cough. Mild shortness of breath. No sputum production, nausea, vomiting, or diarrhea. No fever. No chills. PHYSICAL EXAMINATION: VITAL SIGNS: Temperature 98; heart rate 82; respiratory rate 18; blood pressure 138/85. HEENT: Head is normocephalic and atraumatic. Eyes; PERRLA. Extraocular muscles are intact. Conjunctivae are clear. Nose is patent. Mucous membranes are moist. NECK: Supple. No carotid bruit, JVD or thyromegaly. CHEST: Bilaterally symmetrical. HEART: S1 and S2 positive. LUNGS: Clear to auscultation. ABDOMEN: Soft. Bowel sounds present. No organomegaly. EXTREMITIES: No edema. No cyanosis. NEUROLOGIC: The patient is awake and alert. Moving all four extremities. No focal deficits. MEDICATIONS: Brovana, DuoNeb, metoprolol, Nicoderm, Pulmicort, Solu-Medrol, Tylenol, tramadol, and Zestril. LABORATORY DATA: We do not have recent labs today, but I reviewed old labs. ASSESSMENT AND PLAN: Mr. Teddy Perry is a 72-year-old male with pneumothorax, chronic obstructive lung disease, oropharyngeal dysphagia, diarrhea, chest tube has been removed by the cardiothoracic team. Since yesterday has small residual pneumothorax. Clinically, stable. Gastrointestinal and deep venous thrombosis prophylaxes. Repeat labs. Dr. Morgan ordered x-rays. We will follow up. La Aguayo MD
--- NOTE | 2017-11-28 10:15 | RAD ---
Date of service: 11/28/2017 HISTORY: followup - small apical pneumothorax COMPARISON: Chest radiographs 11/27/2017. FINDINGS: LUNGS: Prior left apical pneumothorax appears to have resolved. It is not identified currently. Trace residual left chest wall emphysematous changes remain. Reticular markings in the periphery of the bilateral lung pressley may reflect an element of pulmonary fibrosis. No alveolitis bilaterally. A skin fold is noted at the right apex laterally. PLEURA: No significant pleural effusion identified, no pneumothorax apparent. CARDIOVASCULAR: Normal. OSSEOUS STRUCTURES: No significant abnormalities. VISUALIZED UPPER ABDOMEN: Normal. OTHER FINDINGS: None. IMPRESSION: No visible pneumothorax bilaterally. Trace residual emphysematous changes remain at the left chest wall laterally. No acute infiltrate or pleural effusion bilaterally.
[2017-11-28] MEDS: MethylPREDNISolone 40 mg Vial IVP SCH (10:48)
[2017-11-28 12:06] VITALS: BP 103/61; PULSE 83; RESP 19; TEMP 97.9
--- NOTE | 2017-11-29 09:14 | PN ---
DATE: 11/28/2017 PULMONARY PROGRESS NOTE REFERRING PHYSICIAN: La Aguayo MD. SUBJECTIVE: The patient is lying in the bed, head at 45 degrees. Night was unremarkable. Mild cough. No sputum production. No nausea, vomiting, diarrhea, leg pain, leg swelling. OBJECTIVE: GENERAL: In no acute distress. VITAL SIGNS: Temperature is 98, heart rate is 83, respiratory rate is 19, blood pressure 103/61. HEENT: Moist mucous membrane. Crowded airway. NECK: Supple. No JVD. LUNGS: Have a few scattered rhonchi. HEART: S1 and S2. ABDOMEN: Soft, nontender. No organomegaly. EXTREMITIES: No edema. NEUROLOGICAL: Awake and alert. MEDICATIONS: He is on doxycycline 100 mg twice a day, DuoNeb every 2 hours p.r.n., metoprolol tartrate 25 mg twice a day, NicoDerm patch daily, budesonide inhaled twice a day, Solu-Medrol 20 mg twice a day, Tylenol p.r.n., Ultram 50 mg every 6 hours p.r.n. Zestril 10 mg daily. LABORATORY DATA: Reviewed and noted. Chest x-ray shows consistent with COPD, but no pneumothorax observed on the x-ray. IMPRESSION AND PLAN: Chronic obstructive lung disease, status post pneumothorax requiring chest tube, which had been removed; oropharyngeal dysphagia; dementia. Pulmonary point of view, doing okay. Continue bronchodilator. Keep head at 45 degrees. Complete 7 days of antibiotics. Thank you and we will follow with you. Chino Morgan MD
== END 2017-11-28 15:03 | DRG 200 ==
LOC: ED 17:19 → ERH 18:23 → 2RSO 21:43
PROVIDERS: ADMIT Internal Medicine; ATTEND Internal Medicine
PROC: 0W9B30Z Drainage of Left Pleural Cavity with Drainage Device, Percutaneous Approach (ICD-10-PCS; principal; 2017-11-23)
PROC: 3E0F7GC Introduction of Other Therapeutic Substance into Respiratory Tract, Via Natural or Artificial Opening (ICD-10-PCS; 2017-11-24)
PROC: 0BPQX0Z Removal of Drainage Device from Pleura, External Approach (ICD-10-PCS; 2017-11-26)
DX: J93.83 Other pneumothorax (principal); R47.01 Aphasia; J44.9 Chronic obstructive pulmonary disease, unspecified; I10 Essential (primary) hypertension; F03.90 Unspecified dementia, unspecified severity, without behavioral disturbance, psychotic disturbance, mood disturbance, and anxiety; R13.12 Dysphagia, oropharyngeal phase; M62.81 Muscle weakness (generalized); D50.9 Iron deficiency anemia, unspecified; R73.9 Hyperglycemia, unspecified; Z66 Do not resuscitate; Z86.73 Personal history of transient ischemic attack (TIA), and cerebral infarction without residual deficits; Z87.891 Personal history of nicotine dependence

== ENCOUNTER 2018-03-07 22:38 | Inpatient (IN) | payer MEDICARE, OTHER ==
[2018-03-07 22:44] VITALS: BMI 19.9
--- NOTE | 2018-03-07 23:11 | ED PDOC ---
Arrival/HPI <Mark Anthony Cross - Last Filed: 03/08/18 02:51> - General Historian: Patient EM Caveat: Uncooperative - History of Present Illness Narrative History of Present Illness (Text): Patient is a 72 M with pmh hypertension, CVA with expressive aphasia, PTX and depression BIBA from [facility] d/t finding of PTX on Chest X-ray at facility. Pt is alert but not able to answer questions. he is able to follow commands but appears confused and mildly agitated pulling at blankets and gown. Pt is not in apparent respiratory distress. Majority of history obtained from chart review. 03/07/18 23:08 Time/Duration: Prior to Arrival, 1 week Symptom Onset: Gradual Symptom Course: Worsening Activities at Onset: Rest Context: Sitting <Dena Morrow - Last Filed: 03/08/18 04:09> - General Chief Complaint: Respiratory Distress Time Seen by Provider: 03/07/18 22:43 Past Medical History - Provider Review Nursing Documentation Reviewed: Yes - Past History Past History: Unable to Obtain - Infectious Disease Hx of Infectious Diseases: None - Tetanus Immunization Tetanus Immunization: Unknown - Past Medical History Past Medical History: Unable to Obtain - Cardiac Hx Hypertension: Yes - Pulmonary Hx Respiratory Disorders: No Other/Comment: hx. pneumothorax - Neurological HX Cerebrovascular Accident: Yes (expressive aphasia) - HEENT Hx HEENT Disorder: No - Renal Hx Renal Disorder: No - Endocrine/Metabolic Hx Endocrine Disorders: No - Hematological/Oncological Hx Blood Disorders: No - Integumentary Hx Dermatological Disorder: No - Musculoskeletal/Rheumatological Hx Falls: No - Gastrointestinal Hx Gastrointestinal Disorders: No - Genitourinary/Gynecological Hx Genitourinary Disorders: No - Psychiatric Hx Depression: Yes Hx Emotional Abuse: No Hx Physical Abuse: No Hx Substance Use: No - Suicidal Assessment Feels Threatened In Home Enviroment: No <Dena Morrow - Last Filed: 03/08/18 04:09> Family/Social History - Physician Review Nursing Documentation Reviewed: Yes Family/Social History: Unknown Family HX Smoking Status: Former Smoker Hx Alcohol Use: No Hx Substance Use: No Substance used: denies Hx Substance Use Treatment: No <Dena Morrow - Last Filed: 03/08/18 04:09> Allergies/Home Meds <Mark Anthony Cross - Last Filed: 03/08/18 02:51> <MorrowDena - Last Filed: 03/08/18 04:09> Allergies/Adverse Reactions: Allergies No Known Allergies Allergy (Verified 03/07/18 22:43) Home Medications: Home Meds Medication Instructions Recorded Confirmed Acetaminophen [Tylenol] 650 mg PO PRN PRN 03/07/18 03/07/18 Folic Acid 1 tab PO DAILY 03/07/18 03/07/18 Lisinopril [Zestril] 10 mg PO DAILY 03/07/18 03/07/18 Memantine [Namenda] 5 mg PO BID 03/07/18 03/07/18 Metoprolol Tartrate [Lopressor] 25 mg PO BID 03/07/18 03/07/18 Sertraline [Zoloft] 1 tab PO DAILY 03/07/18 03/07/18 Thiamine Mononitrate [Vitamin B-1] 1 tab PO DAILY 03/07/18 03/07/18 Review of Systems - Review of Systems Systems not reviewed;Unavailable: Uncooperative (pt has expressive aphasia) <Dena Morrow - Last Filed: 03/08/18 04:09> Physical Exam Vital Signs Temp Pulse Resp BP Pulse Ox 03/07/18 23:23 18 95 03/07/18 23:20 98.1 F 65 18 107/58 L 95 <Mark Anthony Cross - Last Filed: 03/08/18 02:51> Vital Signs Reviewed: Yes Temperature: Afebrile Blood Pressure: Hypotensive Pulse: Regular Respiratory Rate: Normal Appearance: Positive for: Well-Appearing, Non-Toxic, Comfortable, Cachectic Pain Distress: None Mental Status: Positive for: other (unable to obtain d/t expressive aphasia) - Systems Exam Head: Present: Atraumatic, Normocephalic Mouth: Present: Moist Mucous Membranes Respiratory/Chest: Present: Decreased Breath Sounds (left lower lobe). No: Clear to Auscultation, Respiratory Distress, Wheezes, Rales Cardiovascular: Present: Regular Rate and Rhythm. No: Murmurs, Normal S1, S2 Abdomen: No: Tenderness, Distention, Peritoneal Signs Back: Present: Other (small 2cm x 2cm lipomatous mass midthoracic spine) Upper Extremity: Present: Normal Inspection, NORMAL PULSES. No: Cyanosis, Edema Lower Extremity: Present: Normal Inspection, NORMAL PULSES. No: Edema, CALF TENDERNESS Neurological: No: Speech Normal (expressive aphasia) Skin: Present: Warm, Dry, Normal Color, Other (multiple large comodones noted) Psychiatric: Present: Alert. No: Oriented x 3 (unable to obtain d/t expressive aphasia) <Dena Morrow - Last Filed: 03/08/18 04:09> Medical Decision Making ED Course and Treatment: Impression: Pt seen and evaluated with resident. Aware and agree with HPI, clinical findings, plan, and management. Pt, whose past medical history includes hypertension, CVA with expressive aphasia, pneumothorax, and depression, brought after CXR performed at [facility] was positive for a left lateral pneumothorax. Plan: -- CT Chest -- EKG -- CXR -- Labs, cardiac enzymes -- Reassess and disposition 03/08/18 02:10 CT Chest: Aneurysmal ascending aorta measuring 4.2 cm, unchanged. 63% multiloculated left pneumothorax, unchanged/recurrent finding. Passive atelectatic airspace of the left lung with mild mediastinal shift to the right side. Moderate centrilobular pulmonary emphysema, chronic. Unchanged. Moderate chronic bronchitis, unchanged. Normal unenhanced main pulmonary artery and right and left pulmonary arteries. Normal bilateral peripheral pulmonary arteries. Calcified atheromatous plaques of the thoracic aorta and visualized great vessels. There is no demonstrated aortic aneurysm. Normal heart and pericardium. Normal mediastinum. Normal hilar regions. Normal visualized trachea. Normal pleura. Normal chest wall structures. Mild diffuse spondylosis. Normal visualized upper abdomen. IMPRESSION: Aneurysmal ascending aorta measuring 4.2 cm, unchanged. 63% multiloculated left pneumothorax, unchanged/recurrent finding. Passive atelectatic airspace of the left lung with mild mediastinal shift to the right side. Moderate centrilobular pulmonary emphysema, chronic. Unchanged. Moderate chronic bronchitis, unchanged. Electronically signed on Mar 08, 2018 2:09:47 AM EST by: Edwina Patel M.D., Certified by EUGENIE, MSK, Neuroradiology 03/08/18 02:30 Case discussed with surgical technologist sponge diver. Chest tube placed by surgical technologist. - RAD Interpretation Radiology Orders: 03/07/18 22:54 CHEST PORTABLE [RAD] Stat 03/07/18 23:22 CHEST W/O CONTRAST [CT] Stat <Mark Anthony Cross - Last Filed: 03/08/18 02:51> ED Course and Treatment: Impression: 72 pt with pmh hypertension, CVA, PTX and depression with possible left PTX per nursing facility Plan: Labs, cardiac enzymes Chest X-ray Chest CT EKG reassess and disposition 03/08/18 00:37 CT surgery consulted, Dr. Jama, surgical technologist notified plan for chest tube placement after consent obtained 03/08/18 00:56 Consent obtained from patient's son Nain Perry as Mariluz Perry indicates that she is not POA and has been from patient for some [address] cross and nursing staff were present for the phone consent being obtained Chest tube was placed with vice president biostatistics, patient tolerated well, post procedure Chest X-ray was obtained Dr. Chino, covering for Dr. Bell notified and agreed to accept patient to his service patient to be admitted to telemetry 03/08/18 02:58 - Critical Care Critical Care Minutes: 30 minutes - Lab Interpretations I have reviewed the lab results: Yes - RAD Interpretation Radiology Orders: 03/07/18 22:54 CHEST PORTABLE [RAD] Stat - EKG Interpretation Interpreted by ED Physician: Yes (Dr. Cross) Type: 12 lead EKG Comparison: Similar to previous EKG <Dena Morrow - Last Filed: 03/08/18 04:09> - PA / RN HEMODIALYSIS CHARGE / Resident Statement / has reviewed & agrees with the documentation as recorded. /DO has examined the patient and agrees with the treatment plan. <Mark Anthony Cross - Last Filed: 03/08/18 02:51> Disposition/Present on Arrival <Mark Anthony Cross - Last Filed: 03/08/18 02:51> - Present on Arrival Any Indicators Present on Arrival: No History of DVT/PE: No History of Uncontrolled Diabetes: No Urinary Catheter: No History of Decub. Ulcer: No History Surgical Site Infection Following: None - Disposition Have Diagnosis and Disposition been Completed?: Yes Disposition Time: 03:07 Patient Plan: Telemetry <Dena Morrow - Last Filed: 03/08/18 04:09> - Disposition Diagnosis: Pneumothorax on left Disposition: HOSPITALIZED Patient Problems: Current Active Problems Problem Status Onset Pneumothorax on left Acute Condition: STABLE
[2018-03-07 23:39] LABS: HEMOGLOBIN 12.8 g/dL (14.0-18.0); MEAN CELL VOLUME 91.2 fl (80.0-105.0); MEAN CORPUSCULAR HEMOGLOBIN 29.5 pg (25.0-35.0); MEAN CORPUSCULAR HGB CONC 32.3 g/dl (31.0-37.0); MEAN PLATELET VOLUME 9.8 fl (7.0-11.0); RBC 4.34 10^6/uL (3.5-6.1); RED CELL DISTRIBUTION WIDTH 13.3 % (11.5-14.5); WHITE BLOOD COUNT 10.4 10^3/uL (4.5-11.0)
[2018-03-07 23:42] LABS: INR 0.97; PARTIAL THROMBOPLASTIN TIME 28.3 Seconds (25.1-36.5)
[2018-03-08 00:03] LABS: ALB/GLOB RATIO 1.3 (1.1-1.8); ALBUMIN 3.7 g/dL (3.0-4.8); ALT/SGPT 32 U/L (7-56); AST/SGOT 22 U/L (17-59); BLOOD UREA NITROGEN 45 mg/dL (7-21); CALCIUM 8.9 mg/dL (8.4-10.5); GFR NON-AFRICAN AMERICAN 59
[2018-03-08 00:14] LABS: TROPONIN I 0.01 ng/mL
--- NOTE | 2018-03-08 01:45 | CP.PCM.CON ---
History of Present Illness - History of Present Illness History of Present Illness: Thoracic surgery 72M w/ hx of spontaneous pneumothorax, HTN, COPD, Dementia, Depression, CVA w aphasia, who was brought to the ED from [facility] after CXR done there showed a Left Pneumothorax. Upon arrival to the ED pt was sent for CT to further evaluate the location of the Pneumothorax, CT showed a large left sided pneum othorax Surgery was called for chest tube placement. Patient was unable to give histroy d/t severe dementia and aphasia. Pt was in 11/2017 for spontaneous pneumothorax (PTX) of the L side. Treated w chest tube, PTX resolved and [facility]. PMH spontaneous pneumothorax, HTN, COPD, Dementia, Depression, CVA w aphasia PSH : chest tube SS: former smoker , lives in [facility]. Review of Systems - Review of Systems Systems not reviewed;Unavailable: Dementia Past Patient History - Infectious Disease Hx of Infectious Diseases: None - Tetanus Immunizations Tetanus Immunization: Unknown - Past Social History Smoking Status: Former Smoker - CARDIAC Hx Hypertension: Yes - PULMONARY Hx Respiratory Disorders: No Other/Comment: hx. pneumothorax - NEUROLOGICAL HX Cerebrovascular Accident: Yes (expressive aphasia) - HEENT Hx HEENT Problems: No - RENAL Hx Chronic Kidney Disease: No - ENDOCRINE/METABOLIC Hx Endocrine Disorders: No - HEMATOLOGICAL/ONCOLOGICAL Hx Blood Disorders: No - INTEGUMENTARY Hx Dermatological Problems: No - MUSCULOSKELETAL/RHEUMATOLOGICAL Hx Falls: No - GASTROINTESTINAL Hx Gastrointestinal Disorders: No - GENITOURINARY/GYNECOLOGICAL Hx Genitourinary Disorders: No - PSYCHIATRIC Hx Depression: Yes Hx Emotional Abuse: No Hx Physical Abuse: No Hx Substance Use: No - SURGICAL HISTORY Hx Surgeries: No Meds Allergies/Adverse Reactions: Allergies Allergy/AdvReac Type Severity Reaction Status Date / Time No Known Allergies Allergy Verified 03/07/18 22:43 Physical Exam - Constitutional Appears: No Acute Distress, Cachectic - Head Exam Head Exam: ATRAUMATIC, NORMAL INSPECTION, NORMOCEPHALIC - Eye Exam Eye Exam: EOMI, Normal appearance, PERRL Pupil Exam: NORMAL ACCOMODATION, PERRL - ENT Exam ENT Exam: Mucous Membranes Moist, Normal Exam - Neck Exam Neck exam: Positive for: Normal Inspection - Respiratory Exam Respiratory Exam: NORMAL BREATHING PATTERN. absent: Wheezes, Respiratory Distress Additional comments: well healed L chest scar 1cm - Cardiovascular Exam Cardiovascular Exam: REGULAR RHYTHM, +S1, +S2 - GI/Abdominal Exam GI & Abdominal Exam: Soft. absent: Tenderness - Extremities Exam Extremities exam: Positive for: normal inspection - Back Exam Back exam: NORMAL INSPECTION - Neurological Exam Neurological exam: Alert, CN II-XII Intact, Normal Gait, Reflexes Normal - Psychiatric Exam Psychiatric exam: Normal Affect, Normal Mood - Skin Skin Exam: Dry, Intact, Normal Color, Warm Results - Vital Signs Recent Vital Signs: Last Vital Signs Temp 98.1 F 03/07/18 23:20 Pulse 65 03/07/18 23:20 Resp 18 03/07/18 23:23 BP 107/58 L 03/07/18 23:20 Pulse Ox 95 03/07/18 23:23 - Labs Result Diagrams: 03/07/18 23:23 03/07/18 23:23 Labs: Laboratory Results - last 24 hr 03/07/18 03/07/18 03/07/18 23:23 23:23 23:23 WBC 10.4 RBC 4.34 Hgb 12.8 L Hct 39.6 L MCV 91.2 MCH 29.5 MCHC 32.3 RDW 13.3 Plt Count 268 MPV 9.8 PT 11.0 INR 0.97 APTT 28.3 Sodium 140 Potassium 4.7 Chloride 108 H Carbon Dioxide 27 Anion Gap 10 BUN 45 H Creatinine 1.2 Est GFR ( Amer) > 60 Est GFR (Non-Af Amer) 59 Random Glucose 105 Calcium 8.9 Total Bilirubin 0.4 AST 22 ALT 32 Alkaline Phosphatase 86 Lactate Dehydrogenase 428 Total Creatine Kinase 46 Troponin I 0.01 Total Protein 6.6 Albumin 3.7 Globulin 2.9 Albumin/Globulin Ratio 1.3 Assessment & Plan - Assessment and Plan (Free Text) Assessment: recurrent spontaneous pneumothorax 2/[address] -L chest tube placement -Monitor leak -monitor output DW Dr. Dial
[2018-03-08] MEDS ORDERED: Albuterol-Ipratrop 3 mg / 0.5 (3 ml) UD IH PRN (02:22)
--- NOTE | 2018-03-08 02:27 | PCM.PROC ---
Procedures Attestation:: I certify that I have explained the specified Operation(s) or Procedure(s), risks, benefits and reasonable alternatives to the Patient and/or other person responsible. The opportunity was given to ask questions and all questions answered - Chest Tube Chest Tube Location: Mid-Axillary Left Chest Tube Procedure: Chlorhexidine Tube Sutured to Skin: Yes Sterile Dressing Applied: Yes Anesthesia: Lidocaine 1% Incision Made With: #11 blade Post Procedure: sutured to skin, sterile dressing applied, air occlusive dressing Shah of Air [place]: Yes Tube Drainage: none Post Procedure CXR?: Yes Patient Tolerated Procedure: Yes Complications: other (persistent pneumohorax)
[2018-03-08] MEDS ORDERED: Sodium Chloride 0.9% 500 ML IV STA (03:12)
[2018-03-08] MEDS: Albuterol-Ipratrop 3 mg / 0.5 (3 ml) UD IH PRN ×3 (08:41→20:13)
[2018-03-08] MEDS: Acetylcysteine 20% Inhal Soln (4ml) IH SCH ×3 (08:41→20:13)
--- NOTE | 2018-03-08 09:18 | RAD ---
Date of service: 03/07/2018 HISTORY: possible pneumothorax COMPARISON: No prior. FINDINGS: LUNGS: There is a loculated pneumothorax at the left lung base and a smaller pneumothorax seen in the left upper lobe PLEURA: As above CARDIOVASCULAR: No aortic atherosclerotic calcification present. Normal cardiac size. No pulmonary vascular congestion. OSSEOUS STRUCTURES: No significant abnormalities. VISUALIZED UPPER ABDOMEN: Normal. OTHER FINDINGS: None. IMPRESSION: There is a loculated pneumothorax at the left lung base and a smaller pneumothorax seen in the left upper lobe
--- NOTE | 2018-03-08 09:32 | RAD ---
Date of service: 03/08/2018 HISTORY: chest tube COMPARISON: 03/07/2018 FINDINGS: LUNGS: A small caliber chest tube is seen in place on the left. There is no change in the appearance of the loculated appearing left lower lobe pneumothorax and the smaller left upper lobe pneumothorax PLEURA: As above CARDIOVASCULAR: No aortic atherosclerotic calcification present. Normal cardiac size. No pulmonary vascular congestion. OSSEOUS STRUCTURES: No significant abnormalities. VISUALIZED UPPER ABDOMEN: Normal. OTHER FINDINGS: None. IMPRESSION: A small caliber chest tube is seen in place on the left. There is no change in the appearance of the loculated appearing left lower lobe pneumothorax and the smaller left upper lobe pneumothorax
--- NOTE | 2018-03-08 11:27 | CARD ---
APPROVED REPORT Date of service: 03/08/2018 EKG Measurement Heart [id number] <Conclusion> Sinus bradycardia Tall Peaked T Waves R/O Hyperkalaemia.
--- NOTE | 2018-03-08 11:32 | CARD ---
APPROVED REPORT Date of service: 03/07/2018 EKG Measurement Heart [id number] <Conclusion> Normal sinus rhythm Possible Anteroseptal infarct Old? Tall T Waves R/O Hyperkalaemia.
--- NOTE | 2018-03-08 12:25 | CT ---
Date of service: 03/08/2018 PROCEDURE: CT Chest without contrast HISTORY: possible pneumothorax COMPARISON: 11/23/2017 CT and recent chest x-rays TECHNIQUE: Contiguous axial images were obtained through the chest without intravenous contrast enhancement. Sagittal and coronal reconstructions were performed. Radiation dose: Total exam DLP = 290.9 mGy-cm. This CT exam was performed using one or more of the following dose reduction techniques: Automated exposure control, adjustment of the mA and/or kV according to patient size, and/or use of iterative reconstruction technique. FINDINGS: LUNGS: There is a recurrent large left-sided pneumothorax. As seen previously the pneumothorax appears to be loculated. Portions of the lung can be seen extending to the pleural surface in the left upper lobe with a medial loculation. The pneumothorax is largest at the left lung base. MEDIASTINUM: Aortic calcification and mild dilatation normal sized heart. Main pulmonary artery unremarkable. No vascular congestion. No lymphadenopathy. PLEURA: No pleural effusion BONES: No fracture. No destructive lesion. UPPER ABDOMEN: Grossly unremarkable. OTHER FINDINGS: The report concurs with the preliminary [facility] report IMPRESSION: There is a recurrent large left-sided pneumothorax. As seen previously the pneumothorax appears to be loculated. Portions of the lung can be seen extending to the pleural surface in the left upper lobe with a medial loculation. The pneumothorax is largest at the left lung base.
--- NOTE | 2018-03-08 12:59 | RAD ---
Date of service: 03/08/2018 HISTORY: penumothorax judy tube COMPARISON: Earlier same day FINDINGS: LUNGS: There is no change in the appearance of the left-sided pneumothorax. Small caliber chest tube remains in place. There is no mediastinal shift PLEURA: No significant pleural effusion identified, no pneumothorax apparent. CARDIOVASCULAR: No aortic atherosclerotic calcification present. Normal cardiac size. No pulmonary vascular congestion. OSSEOUS STRUCTURES: No significant abnormalities. VISUALIZED UPPER ABDOMEN: Normal. OTHER FINDINGS: None. IMPRESSION: There is no change in the appearance of the left-sided pneumothorax. Small caliber chest tube remains in place. There is no mediastinal shift
--- NOTE | 2018-03-08 15:02 | CP.PCM.PCO ---
Physician Communication Note - Physician Communication Note Physician Communication Note: patient with chest tube to left side chest wall,resting,monitor for output,
--- NOTE | 2018-03-08 23:37 | HP ---
DATE OF EXAM: 03/08/2018 HISTORY OF PRESENT ILLNESS: The patient is a 72-year-old male [facility] resident admitted to the emergency department on 03/08/2018. On chest x-ray, the patient was reported to have left pneumothorax. The patient was noted to have a left pneumothorax on a previous admission of 11/23/2017. The patient was seen in consultation by thoracic surgery and the chest tube was placed. Repeat chest x-rays have shown no improvement in the loculated left-sided pneumothorax. CURRENT MEDICATIONS: Include lisinopril 10 mg daily, memantine 5 mg twice daily, metoprolol tartrate 25 mg twice daily, sertraline 25 mg daily, Tylenol 325 mg 2 tablets every 6 hours p.r.n. pain, folic acid 1 mg daily, Bevespi Aerosol 9-4.8 mcg 2 puffs twice daily. ALLERGIES: THE PATIENT HAS NO KNOWN ALLERGIES. PAST MEDICAL HISTORY: Includes COPD, hypertension and advanced dementia. The patient may have had a history of stroke with expressive aphasia in the past. PAST SURGICAL HISTORY The patient has had a chest to placed in the past. Otherwise, he is unable to give a history. FAMILY HISTORY: Noncontributory. SOCIAL HISTORY: The patient is a former smoker with no drug or alcohol abuse. REVIEW OF SYSTEMS: Essentially unobtainable. PHYSICAL EXAMINATION GENERAL: The patient is a well-developed, cachectic male in no acute distress. VITAL SIGNS: Blood pressure 103/59, pulse 70, temperature 98.4, respiratory rate 19. HEENT: Head is normocephalic, atraumatic. Pupils equal, round, reactive to light. Extraocular movements intact. NECK: Supple. No thyromegaly. No carotid bruit. No adenopathy. CARDIOPULMONARY: Regular rate and rhythm. LUNGS: Show decreased breath sounds in the left lung field. The chest tube is in tact and draining right lung with few scattered crepitations. ABDOMEN: Soft, nontender. Bowel sounds are normoactive. EXTREMITIES: Without cyanosis, clubbing or edema. There is bilateral mild flexion contractures of the hips and knees NEUROLOGICAL: The patient is somewhat lethargic and confused without focal sensory motor deficits. SKIN: Warm and dry. LABORATORY DATA: WBC is 10.4, hemoglobin 12.8, hematocrit 39.6. Sodium 140, potassium 4.7, chloride 108, CO2 27, BUN 45, creatinine 1.2. Troponin is less than 0.[address] scan of the chest shows a loculated left-sided pleural effusion. IMPRESSION: 1. Recurrent versus chronic left-sided pneumothorax. 2. Chronic obstructive pulmonary disease. 3. Hypertension. 4. Advanced dementia. PLAN: We will obtain pulmonary consult as well as thoracic surgical followup of chest tube placement. to resume care of the patient on Sunday. DEMOND Santizo MD
[2018-03-09] MEDS: Acetylcysteine 20% Inhal Soln (4ml) IH SCH ×3 (01:43→21:36)
[2018-03-09] MEDS: Albuterol-Ipratrop 3 mg / 0.5 (3 ml) UD IH PRN ×3 (01:43→21:39)
[2018-03-09 07:04] LABS: ALB/GLOB RATIO 1.3 (1.1-1.8); ALBUMIN 3.5 g/dL (3.0-4.8); ALT/SGPT 32 U/L (7-56); AST/SGOT 21 U/L (17-59); BLOOD UREA NITROGEN 37 mg/dL (7-21); GFR NON-AFRICAN AMERICAN 54
[2018-03-09 07:11] LABS: HEMOGLOBIN 12.3 g/dL (14.0-18.0); MEAN CELL VOLUME 90.8 fl (80.0-105.0); MEAN CORPUSCULAR HEMOGLOBIN 29.1 pg (25.0-35.0); MEAN PLATELET VOLUME 9.7 fl (7.0-11.0); RBC 4.23 10^6/uL (3.5-6.1); RED CELL DISTRIBUTION WIDTH 13.2 % (11.5-14.5); WHITE BLOOD COUNT 8.5 10^3/uL (4.5-11.0)
--- NOTE | 2018-03-09 09:03 | CP.PCM.PN ---
Subjective - Date & Time of Evaluation Date of Evaluation: 03/09/18 Time of Evaluation: 07:00 - Subjective Subjective: Thoracic Surgery Progress note- Dr. Stern Patient seen and examined at [facility]. Aphasic. Per nursing notes, no acute events overnight. Pigtail catheter to suction, minimal output, no airleak detected. Plan for CT of Chest today for ?re-expansion of lung. Objective - Vital Signs/Intake and Output Vital Signs (last 24 hours): Temp Pulse Resp BP Pulse Ox 97.5 F L 70 19 111/76 95 03/09/18 06:00 03/09/18 06:00 03/09/18 06:00 03/09/18 06:38 03/09/18 06:00 Intake and Output: 03/09/18 03/09/18 06:59 18:59 Intake Total 0 Balance 0 - Medications Medications: Current Medications Acetaminophen (Tylenol 325mg Tab) 650 mg PO Q6H PRN PRN Reason: Fever >100.4 F Acetylcysteine (Acetylcysteine 20%) 4 ml IH [id number] [facility] Last Admin: 03/09/18 08:05 Dose: 4 ml Albuterol/Ipratropium (Duoneb 3 Mg/0.5 Mg (3 Ml) Ud) 3 ml IH Q4 PRN PRN Reason: Shortness of Breath Last Admin: 03/09/18 08:05 Dose: 3 ml Memantine (Namenda) 5 mg PO BID [facility] Last Admin: 03/08/18 17:06 Dose: 5 mg Metoprolol Tartrate (Lopressor) 25 mg PO BRKDIN [facility] Last Admin: 03/09/18 06:38 Dose: 25 mg Sertraline HCl (Zoloft) 25 mg PO DAILY [facility] - Labs Labs: 03/09/18 06:00 03/09/18 06:00 PT 11.0 SECONDS (9.4-12.5) 03/07/18 23:15 INR 0.97 03/07/18 23:15 APTT 28.3 Seconds (25.1-36.5) 03/07/18 23:15 - Constitutional Appears: No Acute Distress, Chronically Ill - Head Exam Head Exam: ATRAUMATIC - Eye Exam Eye Exam: EOMI - ENT Exam ENT Exam: Mucous Membranes Moist - Respiratory Exam Respiratory Exam: NORMAL BREATHING PATTERN. absent: Accessory Muscle Use, Respiratory Distress Additional comments: L. Pigtail catheter in place. No air leak detected. to suction - Cardiovascular Exam Cardiovascular Exam: REGULAR RHYTHM, +S1, +S2. absent: Bradycardia, Tachycardia - GI/Abdominal Exam GI & Abdominal Exam: Soft. absent: Distended, Firm, Guarding, Rigid, Tenderness - Extremities Exam Extremities Exam: absent: Calf Tenderness - Neurological Exam Neurological Exam: Awake - Psychiatric Exam Psychiatric exam: Flat Affect - Skin Skin Exam: Warm Assessment and Plan - Assessment and Plan (Free Text) Assessment: 72M w/ recurrent vs persistent pneumothorax s/p Pigtail catheter placement Plan: - CT scan of chest today - further management pending results - continued medical management per primary team - further recs per Dr. Virginie Dean PGY2
[2018-03-09] MEDS ORDERED: Iodixanol 320 MG/ML 100 ML BOTTLE IV ONE (09:39)
--- NOTE | 2018-03-09 10:13 | CP.PCM.PN ---
Subjective - Date & Time of Evaluation Date of Evaluation: 03/09/18 Time of Evaluation: 09:15 - Subjective Subjective: resting comfortably, NAD, no SOB, no cough or hemoptysis Objective - Vital Signs/Intake and Output Vital Signs (last 24 hours): Temp Pulse Resp BP Pulse Ox 97.5 F L 70 19 111/76 95 03/09/18 06:00 03/09/18 06:00 03/09/18 06:00 03/09/18 06:38 03/09/18 06:00 Intake and Output: 03/09/18 03/09/18 06:59 18:59 Intake Total 0 Balance 0 - Medications Medications: Current Medications Acetaminophen (Tylenol 325mg Tab) 650 mg PO Q6H PRN PRN Reason: Fever >100.4 F Acetylcysteine (Acetylcysteine 20%) 4 ml IH [id number] [facility] Last Admin: 03/09/18 08:05 Dose: 4 ml Albuterol/Ipratropium (Duoneb 3 Mg/0.5 Mg (3 Ml) Ud) 3 ml IH Q4 PRN PRN Reason: Shortness of Breath Last Admin: 03/09/18 08:05 Dose: 3 ml Memantine (Namenda) 5 mg PO BID [facility] Last Admin: 03/08/18 17:06 Dose: 5 mg Metoprolol Tartrate (Lopressor) 25 mg PO BRKDIN [facility] Last Admin: 03/09/18 06:38 Dose: 25 mg Sertraline HCl (Zoloft) 25 mg PO DAILY [facility] - Labs Labs: 03/09/18 06:00 03/09/18 06:00 PT 11.0 SECONDS (9.4-12.5) 03/07/18 23:15 INR 0.97 03/07/18 23:15 APTT 28.3 Seconds (25.1-36.5) 03/07/18 23:15 - Respiratory Exam Respiratory Exam: Decreased Breath Sounds Additional comments: decreased breath sound left lung field, chest tube intact - Cardiovascular Exam Cardiovascular Exam: REGULAR RHYTHM - GI/Abdominal Exam GI & Abdominal Exam: Soft, Normal Bowel Sounds - Neurological Exam Neurological Exam: Altered - Skin Skin Exam: Dry, Warm Assessment and Plan (1) Pneumothorax on left Status: Chronic (2) Dementia Status: Chronic - Assessment and Plan (Free Text) Plan: repeat chest CT pending, pulmonary consult Dr. Morgan
--- NOTE | 2018-03-09 10:55 | CT ---
Date of service: 03/09/2018 PROCEDURE: CT Chest without contrast HISTORY: f/u lung expansion COMPARISON: CT 03/08/2018 TECHNIQUE: Contiguous axial images were obtained through the chest without intravenous contrast enhancement. Sagittal and coronal reconstructions were performed. Radiation dose: Total exam DLP = 364.97 mGy-cm. This CT exam was performed using one or more of the following dose reduction techniques: Automated exposure control, adjustment of the mA and/or kV according to patient size, and/or use of iterative reconstruction technique. FINDINGS: LUNGS: There is no change in the appearance of the large left-sided loculated pneumothorax. The small caliber chest tube on the left can be seen within the lung parenchyma and is not in the pleural space. MEDIASTINUM: Unremarkable thoracic aorta. No aneurysm. Normal sized heart. Main pulmonary artery unremarkable. No vascular congestion. No lymphadenopathy. No aortic atherosclerotic calcification. PLEURA: As above BONES: No fracture. No destructive lesion. UPPER ABDOMEN: Grossly unremarkable. OTHER FINDINGS: None. IMPRESSION: There is no change in the appearance of the large left-sided loculated pneumothorax. The small caliber chest tube on the left can be seen within the lung parenchyma and is NOT in the pleural space.
[2018-03-09] MEDS ORDERED: Sodium Chloride 0.9% 500 ML IV STA (13:02)
--- NOTE | 2018-03-09 19:36 | CON ---
DATE: 03/09/2018 PULMONARY CONSULT REFERRING PHYSICIAN: Dr. Chino. REASON FOR CONSULT: Recurrent pneumothorax. HISTORY OF PRESENT ILLNESS: This is a 72-year-old gentleman known to me from previous admission, has a history of hypertension, stroke, expressive aphasia, who was recently admitted to [facility], had spontaneous pneumothorax, requiring chest tube which resolved and the patient was sent back to [facility], now found to have recurrent left pneumothorax with some shortness of breath and cough, brought into ER, chest tube was placed, which is present suction and has a persistent air leak. The patient is aphasic. No cough. No sputum production. No hemoptysis. No hematemesis. No hematuria or diarrhea reported. PAST MEDICAL HISTORY: Hypertension, stroke, expressive aphasia, recurrent pneumothorax. FAMILY HISTORY: No significant cardiopulmonary disease reported. SOCIAL HISTORY: He is a former smoker. ALLERGIES: NONE KNOWN. MEDICATIONS AT PRESENT: Mucomyst inhaled every 6 hours, DuoNeb every 4 hours p.r.n., metoprolol tartrate 25 mg twice a day, Namenda 5 mg twice a day, Tylenol p.r.n., and Zoloft 25 mg daily. REVIEW OF SYSTEMS: No headache, no rhinitis. Denied significant cough or short of breath, though complaining about mild chest area discomfort. No nausea, no diarrhea. No leg pain or leg swelling. PHYSICAL EXAMINATION GENERAL: No acute distress. VITAL SIGNS: Temperature 98, heart rate 70, respiratory rate is 18, blood pressure 111/76, pulse ox 95% on nasal cannula. HEENT: Moist mucous membranes. Crowded airway. NECK: Supple. No JVD. LUNGS: Have decreased breath sounds at the bases, left sided chest tube. HEART: S1 and S2. ABDOMEN: Soft and nontender. No organomegaly. EXTREMITIES: No edema. A small decubitus ulcer. NEUROLOGIC: Awake, alert, and aphasic. LABORATORY DATA: Shows hemoglobin 12.3, hematocrit 38.4, WBC 8.5, and platelet is 265. INR 0.97 and PTT 28. Sodium 140, potassium 4.4, chloride 110, bicarbonate 26, BUN 37, creatinine 1.3, glucose 95, calcium is 9.0, magnesium 2.1. AST 21, ALT 32, alk phos is 73, and albumin is 3.5. CAT scan of the chest done today while the patient has a chest tube and there is no change in appearance of the large left sided loculated pneumothorax with small caliber chest tube in the left can be seen within the lung parenchyma and a node in the pleural space. IMPRESSION AND PLAN: Chronic obstructive lung disease with spontaneous pneumothorax, history of hypertension, still has the significant leak, also CT scan suggested that chest tube in the lung parenchyma. We will leave decision for thoracic surgery. This tube need to come out and probably need another tube placement under CT-guided, so can drain the loculated pneumothorax. We will add inhaled bronchodilator, keep head at 45 degrees, aspiration precaution, and gastric and deep venous thrombosis prophylaxis. Followup x-ray in the morning. Thank you and we will follow with you. Chino Morgan MD
[2018-03-09] MEDS: Arformoterol 15 mcg/2 ml Inh Sol IH SCH (21:36)
[2018-03-09] MEDS: Budesonide 0.5 mg/2 ml Inhal Susp UD IH SCH (21:36)
[2018-03-10] MEDS: Pantoprazole 40 mg EC Tab PO SCH (06:16)
[2018-03-10] MEDS: Acetylcysteine 20% Inhal Soln (4ml) IH SCH ×2 (07:56→21:45)
[2018-03-10] MEDS: Budesonide 0.5 mg/2 ml Inhal Susp UD IH SCH ×2 (07:56→21:45)
[2018-03-10] MEDS: Arformoterol 15 mcg/2 ml Inh Sol IH SCH ×2 (07:56→21:45)
--- NOTE | 2018-03-10 08:50 | CP.PCM.PN ---
Subjective - Date & Time of Evaluation Date of Evaluation: 03/10/18 Time of Evaluation: 08:38 - Subjective Subjective: Surgery: Dr. Klein Pt seen and examined. No acute events overnight. Pt resting comfortably in bed. Objective - Vital Signs/Intake and Output Vital Signs (last 24 hours): Temp Pulse Resp BP Pulse Ox 98.0 F 77 20 103/62 97 03/10/18 06:00 03/10/18 06:00 03/10/18 06:00 03/10/18 06:00 03/10/18 06:00 Intake and Output: 03/10/18 03/10/18 06:59 18:59 Intake Total 0 Balance 0 - Medications Medications: Current Medications Acetaminophen (Tylenol 325mg Tab) 650 mg PO Q6H PRN PRN Reason: Fever >100.4 F Acetylcysteine (Acetylcysteine 20%) 3 ml IH BIDRESP [facility] Last Admin: 03/10/18 07:56 Dose: 3 ml Albuterol/Ipratropium (Duoneb 3 Mg/0.5 Mg (3 Ml) Ud) 3 ml IH Q4 PRN PRN Reason: Shortness of Breath Last Admin: 03/09/18 21:39 Dose: 3 ml Arformoterol Tartrate (Brovana) 15 mcg IH [id number] [facility] Last Admin: 03/10/18 07:56 Dose: 15 mcg Budesonide (Pulmicort Respules) 0.5 mg IH [id number] [facility] Last Admin: 03/10/18 07:56 Dose: 0.5 mg Enoxaparin Sodium (Lovenox) 40 mg SC DAILY [facility]; Protocol Memantine (Namenda) 5 mg PO BID [facility] Last Admin: 03/09/18 17:55 Dose: 5 mg Metoprolol Tartrate (Lopressor) 25 mg PO BRKDIN [facility] Last Admin: 03/10/18 08:26 Dose: Not Given Pantoprazole Sodium (Protonix Ec Tab) 40 mg PO 0600 [facility] Last Admin: 03/10/18 06:16 Dose: 40 mg Sertraline HCl (Zoloft) 25 mg PO DAILY [facility] Last Admin: 03/09/18 11:18 Dose: 25 mg - Labs Labs: 03/09/18 06:00 03/09/18 06:00 PT 11.0 SECONDS (9.4-12.5) 03/07/18 23:15 INR 0.97 03/07/18 23:15 APTT 28.3 Seconds (25.1-36.5) 03/07/18 23:15 - Constitutional Appears: Non-toxic, No Acute Distress - Head Exam Head Exam: ATRAUMATIC, NORMOCEPHALIC - Eye Exam Eye Exam: EOMI - ENT Exam ENT Exam: Mucous Membranes Moist - Neck Exam Neck Exam: Full ROM - Respiratory Exam Respiratory Exam: NORMAL BREATHING PATTERN. absent: Accessory Muscle Use, Respiratory Distress Additional comments: L side pigtail in place - GI/Abdominal Exam GI & Abdominal Exam: Soft. absent: Tenderness - Neurological Exam Neurological Exam: Awake. absent: Alert, Oriented x3 Assessment and Plan - Assessment and Plan (Free Text) Assessment: 72M w. L PTX, s/p pigtail placement -F/U AM CXR -CT tidling, no air leak, keep to sxn -Daily CXR -d/w attending Zemaitis PGY4
[2018-03-10] MEDS: Enoxaparin 40 mg Syringe SC SCH (09:41)
--- NOTE | 2018-03-10 10:19 | RAD ---
Date of service: 03/10/2018 HISTORY: comparison COMPARISON: CT scan 03/09/2018 and recent chest x-rays FINDINGS: LUNGS: There is no change in the pattern of pneumothorax. There are new chest tubes at the left lung base. The small caliber chest tube remains in place. The recent CT showed that this was not in the pleural space. PLEURA: As above CARDIOVASCULAR: No aortic atherosclerotic calcification present. Normal cardiac size. No pulmonary vascular congestion. OSSEOUS STRUCTURES: No significant abnormalities. VISUALIZED UPPER ABDOMEN: Normal. OTHER FINDINGS: None. IMPRESSION: There is no change in the pattern of pneumothorax. There are new chest tubes at the left lung base.
--- NOTE | 2018-03-10 11:41 | CP.PCM.PN ---
Subjective - Date & Time of Evaluation Date of Evaluation: 03/10/18 Time of Evaluation: 10:15 - Subjective Subjective: resting comfortably, NAD, awake and confused, no SOB Objective - Vital Signs/Intake and Output Vital Signs (last 24 hours): Temp Pulse Resp BP Pulse Ox 98.0 F 77 20 103/62 97 03/10/18 06:00 03/10/18 06:00 03/10/18 06:00 03/10/18 06:00 03/10/18 06:00 Intake and Output: 03/10/18 03/10/18 06:59 18:59 Intake Total 0 Balance 0 - Medications Medications: Current Medications Acetaminophen (Tylenol 325mg Tab) 650 mg PO Q6H PRN PRN Reason: Fever >100.4 F Acetylcysteine (Acetylcysteine 20%) 3 ml IH BIDRESP [facility] Last Admin: 03/10/18 07:56 Dose: 3 ml Albuterol/Ipratropium (Duoneb 3 Mg/0.5 Mg (3 Ml) Ud) 3 ml IH Q4 PRN PRN Reason: Shortness of Breath Last Admin: 03/09/18 21:39 Dose: 3 ml Arformoterol Tartrate (Brovana) 15 mcg IH [id number] [facility] Last Admin: 03/10/18 07:56 Dose: 15 mcg Budesonide (Pulmicort Respules) 0.5 mg IH [id number] [facility] Last Admin: 03/10/18 07:56 Dose: 0.5 mg Enoxaparin Sodium (Lovenox) 40 mg SC DAILY [facility]; Protocol Last Admin: 03/10/18 09:41 Dose: 40 mg Memantine (Namenda) 5 mg PO BID [facility] Last Admin: 03/10/18 09:40 Dose: 5 mg Metoprolol Tartrate (Lopressor) 25 mg PO BRKDIN [facility] Last Admin: 03/10/18 08:26 Dose: Not Given Pantoprazole Sodium (Protonix Ec Tab) 40 mg PO 0600 [facility] Last Admin: 03/10/18 06:16 Dose: 40 mg Sertraline HCl (Zoloft) 25 mg PO DAILY [facility] Last Admin: 03/10/18 09:40 Dose: 25 mg - Labs Labs: 03/09/18 06:00 03/09/18 06:00 PT 11.0 SECONDS (9.4-12.5) 03/07/18 23:15 INR 0.97 03/07/18 23:15 APTT 28.3 Seconds (25.1-36.5) 03/07/18 23:15 - Respiratory Exam Additional comments: decreased breath sounds left lung field, chest tube intact, CT chest without change from previous - Cardiovascular Exam Cardiovascular Exam: REGULAR RHYTHM - GI/Abdominal Exam GI & Abdominal Exam: Soft, Normal Bowel Sounds - Extremities Exam Extremities Exam: Normal Inspection - Neurological Exam Neurological Exam: Altered Assessment and Plan (1) Pneumothorax on left Status: Chronic (2) Dementia Status: Chronic - Assessment and Plan (Free Text) Plan: continue present care/chest tube/pulmonory follow-up, Dr. Aguayo to resume care of patient in am
--- NOTE | 2018-03-10 22:10 | PN ---
DATE: 03/10/2018 REFERRING PHYSICIAN: Dr. Chino. SUBJECTIVE: Lying in the bed, head 45 degrees. He has some cough and sputum. No nausea. No vomiting. Mild chest tube site discomfort. No abdominal pain, dysuria, leg pain or leg swelling. PHYSICAL EXAMINATION: GENERAL: No acute distress. VITAL SIGNS: Temp 98, heart rate is 83, respiratory rate is 20, blood pressure 103/62, pulse ox 97% on room air. HEENT: Moist mucous membrane. Crowded airway. NECK: Supple. No JVD. LUNGS: Scattered rhonchi. Decreased breath sounds on left lung. Has a left-sided chest tube. HEART: S1 and S2. ABDOMEN: Soft, nontender. No organomegaly. EXTREMITIES: There is no edema. NEUROLOGIC: Awake, alert, aphasic. MEDICATIONS: He is on Mucomyst inhaler twice a day, Brovana inhaled twice a day, DuoNeb every 4 hours p.r.n., metoprolol tartrate 25 mg twice a day, Lovenox 40 mg daily, Namenda 5 mg twice a day, Protonix 40 mg daily, Pulmicort inhaler twice a day, trazodone p.r.n. basis, Zoloft 25 mg daily. LABORATORY DATA: Reviewed. No new lab is available since yesterday. Chest x-ray done today shows new chest tube on the left side. Still has a pneumothorax. IMPRESSION: Recurrent pneumothorax requiring chest tube, being followed by thoracic surgery. Chest tube was changed yesterday because of nonfunctional chest tube, chronic obstructive lung disease, hypertension, history of stroke, dementia. From pulmonary point of view, we will continue bronchodilator. Keep head 45 degrees, aspiration precaution. Followup chest x-ray on a daily basis. Keep chest tube to low suction. Gastric prophylaxis. Deep venous thrombosis prophylaxis. Follow up chest x-ray in the morning. Chino Morgan MD
[2018-03-11] MEDS: Pantoprazole 40 mg EC Tab PO SCH (06:10)
[2018-03-11 07:10] LABS: HEMOGLOBIN 13.1 g/dL (14.0-18.0); MEAN CORPUSCULAR HEMOGLOBIN 29.3 pg (25.0-35.0); MEAN CORPUSCULAR HGB CONC 32.9 g/dl (31.0-37.0); MEAN PLATELET VOLUME 9.7 fl (7.0-11.0); RBC 4.47 10^6/uL (3.5-6.1); WHITE BLOOD COUNT 9.5 10^3/uL (4.5-11.0)
[2018-03-11] MEDS: Budesonide 0.5 mg/2 ml Inhal Susp UD IH SCH ×2 (07:30→22:26)
[2018-03-11] MEDS: Arformoterol 15 mcg/2 ml Inh Sol IH SCH ×2 (07:30→22:26)
[2018-03-11] MEDS: Acetylcysteine 20% Inhal Soln (4ml) IH SCH ×2 (07:30→22:25)
[2018-03-11 08:01] LABS: ALB/GLOB RATIO 1.3 (1.1-1.8); ALBUMIN 3.8 g/dL (3.0-4.8); ALT/SGPT 31 U/L (7-56); AST/SGOT 32 U/L (17-59); BLOOD UREA NITROGEN 30 mg/dL (7-21); CALCIUM 9.1 mg/dL (8.4-10.5); GFR NON-AFRICAN AMERICAN 59
--- NOTE | 2018-03-11 08:29 | CP.PCM.PN ---
Subjective - Date & Time of Evaluation Date of Evaluation: 03/11/18 Time of Evaluation: 08:25 - Subjective Subjective: Surgery Pt seen and examined. No acute events. CXR taken this AM. persistent pneumo/ large bullae. Pt asymptomatic. No leak. Resting comfortably. Objective - Vital Signs/Intake and Output Vital Signs (last 24 hours): Temp Pulse Resp BP Pulse Ox 97.6 F 68 20 111/77 96 03/11/18 08:10 03/11/18 08:10 03/11/18 08:10 03/11/18 08:10 03/11/18 08:10 Intake and Output: 03/11/18 03/11/18 06:59 18:59 Intake Total 120 Output Total 60 Balance 60 - Medications Medications: Current Medications Acetaminophen (Tylenol 325mg Tab) 650 mg PO Q6H PRN PRN Reason: Fever >100.4 F Acetylcysteine (Acetylcysteine 20%) 3 ml IH BIDRESP [facility] Last Admin: 03/11/18 07:30 Dose: 3 ml Albuterol/Ipratropium (Duoneb 3 Mg/0.5 Mg (3 Ml) Ud) 3 ml IH Q4 PRN PRN Reason: Shortness of Breath Last Admin: 03/09/18 21:39 Dose: 3 ml Arformoterol Tartrate (Brovana) 15 mcg IH [id number] [facility] Last Admin: 03/11/18 07:30 Dose: 15 mcg Budesonide (Pulmicort Respules) 0.5 mg IH [id number] [facility] Last Admin: 03/11/18 07:30 Dose: 0.5 mg Enoxaparin Sodium (Lovenox) 40 mg SC DAILY [facility]; Protocol Last Admin: 03/10/18 09:41 Dose: 40 mg Memantine (Namenda) 5 mg PO BID [facility] Last Admin: 03/10/18 17:16 Dose: 5 mg Metoprolol Tartrate (Lopressor) 25 mg PO BRKDIN [facility] Last Admin: 03/10/18 17:16 Dose: Not Given Pantoprazole Sodium (Protonix Ec Tab) 40 mg PO 0600 [facility] Last Admin: 03/11/18 06:10 Dose: 40 mg Sertraline HCl (Zoloft) 25 mg PO DAILY [facility] Last Admin: 03/10/18 09:40 Dose: 25 mg - Labs Labs: 03/11/18 06:00 03/11/18 06:00 PT 11.0 SECONDS (9.4-12.5) 03/07/18 23:15 INR 0.97 03/07/18 23:15 APTT 28.3 Seconds (25.1-36.5) 03/07/18 23:15 - Constitutional Appears: No Acute Distress - Head Exam Head Exam: ATRAUMATIC, NORMAL INSPECTION, NORMOCEPHALIC - Eye Exam Eye Exam: EOMI, Normal appearance, PERRL Pupil Exam: NORMAL ACCOMODATION, PERRL - ENT Exam ENT Exam: Mucous Membranes Moist, Normal Exam - Neck Exam Neck Exam: Normal Inspection - Respiratory Exam Respiratory Exam: NORMAL BREATHING PATTERN Additional comments: L chest tube in place. no leak. - Cardiovascular Exam Cardiovascular Exam: REGULAR RHYTHM - GI/Abdominal Exam GI & Abdominal Exam: Soft, Normal Bowel Sounds. absent: Tenderness - Back Exam Back Exam: NORMAL INSPECTION - Neurological Exam Neurological Exam: Alert, Awake, CN II-XII Intact, Normal Gait, Oriented x3 - Psychiatric Exam Psychiatric exam: Normal Affect, Normal Mood - Skin Skin Exam: Dry, Intact, Normal Color, Warm Assessment and Plan - Assessment and Plan (Free Text) Assessment: 72M w. L PTX, s/p pigtail placement: off suction -F/U AM CXR -CT tidling, no air leak, keep off sxn -Daily CXR -will d/w attending
[2018-03-11] MEDS: Enoxaparin 40 mg Syringe SC SCH (09:29)
--- NOTE | 2018-03-11 10:08 | RAD ---
Date of service: 03/11/2018 HISTORY: comparison COMPARISON: 03/10/2018 FINDINGS: LUNGS: There is slight improvement in the left-sided loculated pneumothorax. PLEURA: As above CARDIOVASCULAR: No aortic atherosclerotic calcification present. Normal cardiac size. No pulmonary vascular congestion. OSSEOUS STRUCTURES: No significant abnormalities. VISUALIZED UPPER ABDOMEN: Normal. OTHER FINDINGS: None. IMPRESSION: Slight improvement in left-sided loculated pneumothorax
--- NOTE | 2018-03-11 11:00 | RAD ---
Date of service: 03/11/2018 HISTORY: Pigtail to waterseal COMPARISON: Earlier same day FINDINGS: LUNGS: PLEURA: No change in loculated left-sided pneumothorax CARDIOVASCULAR: No aortic atherosclerotic calcification present. Normal cardiac size. No pulmonary vascular congestion. OSSEOUS STRUCTURES: No significant abnormalities. VISUALIZED UPPER ABDOMEN: Normal. OTHER FINDINGS: None. IMPRESSION: No change in loculated left-sided pneumothorax
--- NOTE | 2018-03-11 14:52 | PN ---
DATE: 03/11/2018 REFERRING PHYSICIAN: La Aguayo MD. SUBJECTIVE: The patient is sitting up in bed, in no acute distress. No overnight events reported. Chest tube is in place. He has occasional cough. No shortness of breath, no headache, rhinitis. No abdominal pain, nausea, vomiting, diarrhea, leg pain, or leg swelling reported. Mild discomfort to the chest tube site. OBJECTIVE: GENERAL: In no acute distress. VITAL SIGNS: Blood pressure 111/77, pulse 68, temperature 97.6, and oxygen saturations 96%. HEENT: Moist mucous membranes, crowded airway. NECK: Supple, no JVD. RESPIRATORY: Decreased breath sounds to the left lung, left-sided chest tube present, few scattered rhonchi. CARDIOVASCULAR: S1 and S2 audible. ABDOMEN: Soft and nontender. No distention and no organomegaly. EXTREMITIES: No bilateral lower extremity edema. NEUROLOGIC: Awake and alert, aphasic. LABORATORY DATA: Reviewed. WBC 9.5, RBC 4.47, hemoglobin 13.1, hematocrit 39.9, platelets 275. Sodium 139, potassium 4.9, chloride 106, carbon dioxide 26, anion gap of 11, BUN 30, creatinine 1.2, GFR 59, random glucose 93, calcium 9.1, total bilirubin 0.8, AST 32, ALT 31, alkaline phosphatase 77, total protein 6.7, albumin 3.8, globulin 2.9, and albumin-globulin ratio 1.3. Chest x-ray shows no change in loculated left-sided pneumothorax. MEDICATIONS: Reviewed. Tylenol 650 mg every 6 hours p.r.n. fever greater than 100.4., Mucomyst 3 mL inhalation twice a day, DuoNeb 3 mL inhalation every 4 hours p.r.n., Brovana 15 mcg every 12 hours, Pulmicort 0.5 mg every 12 hours, Lovenox 40 mg subcutaneously daily, Namenda 5 mg twice a day, Lopressor 25 mg breakfast, Protonix 40 mg daily, and Zoloft 25 mg daily. IMPRESSION AND PLAN: Recurrent pneumothorax requiring chest tube, chronic obstructive lung disease, hypertension, dementia, history of stroke, and chest tube, is being followed by Thoracic Surgery. Continue followup, continue chest tube care, keep head of bed elevated at 45 degrees, aspiration precaution, continue bronchodilators, gastric prophylaxis, and deep venous thrombosis prophylaxis. He will need follow-up chest x-rays on a daily basis. This patient is seen and examined with Dr. Morgan. Discussed assessment and plan as described above. Thank you for this consult. We will follow with you. Johnathon Mora APN Chino Morgan Md
--- NOTE | 2018-03-11 20:40 | CP.PCM.PCO ---
Physician Communication Note - Physician Communication Note Physician Communication Note: pt.w.recurrent L pneumothorax,chest tube in place,draining serousanguinous
--- NOTE | 2018-03-12 01:12 | PN ---
DATE: 03/11/2018 SUBJECTIVE: The patient is a 72-year-old male. The patient was seen and examined at the bedside on 03/11/2018. The patient is looking comfortable. No fever. No chills. No overnight events reported. No headache. No dizziness. No nausea, vomiting or diarrhea. PHYSICAL EXAMINATION VITAL SIGNS: Blood pressure 120/80, pulse 70, temperature 98.6 and oxygenation is 97%. HEENT: Head; normocephalic and atraumatic. Eyes; PERRLA. Extraocular muscles are intact. Conjunctivae are clear. Nose is patent. NECK: Supple. No carotid bruit, JVD or thyromegaly. CHEST: Bilaterally symmetrical. HEART: S1 and S2 positive. LUNGS: Decreased breath sound on the left lung, left-sided chest tube present. Few scattered rhonchi. ABDOMEN: Soft. Bowel sounds present. No organomegaly. EXTREMITIES: Bilaterally, no edema. No cyanosis. NEUROLOGIC: The patient is awake and alert. Moving all four extremities. LABORATORY DATA: White blood cell 9.5, hemoglobin 13.1, hematocrit 39.9, platelets 275. Sodium 139, potassium 4.3, BUN 30, creatinine 1.2. AST 32 and ALT 31. Chest x-ray shows no change in the loculated left-sided pneumothorax. ASSESSMENT AND PLAN: Mr. Teddy Perry is a 72-year-old male with recurrent pneumothorax, requiring chest tube, chronic obstructive lung disease, hypertension, dementia, history of stroke and has chest tube, had follow up with Thoracic Surgeon. Continue present treatment. Aspiration precautions. Gastric and deep venous thrombosis prophylaxis. We will do follow up chest x-rays. Reviewed chest x-ray by me. CAT scan of the chest is done, but the results are pending. Noted Dr. Morgan's notes. The patient has recurrent left pneumothorax. Chest tube is in place, draining serosanguineous secretions, history of dementia, clear chest tube. Spanish Lecturer is on the case. Repeat labs. We will follow up. La Aguayo MD GEETHA
[2018-03-12] MEDS: Pantoprazole 40 mg EC Tab PO SCH (05:37)
--- NOTE | 2018-03-12 07:26 | CP.PCM.PCO ---
Addendum Addendum: Patient's repeat CXR is stable. Labs, vital signs, and imaging were reviewed. Patient is clinically stable s/p removal of chest tube. No further cardio or pulmonary intervention is necessary at this time as per surgical team. Thank you. Jhoan Vargas, PGY1 Surgery Physician Communication Note
[2018-03-12] MEDS: Budesonide 0.5 mg/2 ml Inhal Susp UD IH SCH (07:49)
[2018-03-12] MEDS: Acetylcysteine 20% Inhal Soln (4ml) IH SCH (07:49)
[2018-03-12] MEDS: Arformoterol 15 mcg/2 ml Inh Sol IH SCH (07:49)
[2018-03-12 08:11] VITALS: RESP 20
--- NOTE | 2018-03-12 08:32 | RAD ---
Date of service: 03/11/2018 HISTORY: chest tube pulled COMPARISON: 03/11/2018. FINDINGS: LUNGS: The lungs are hyperinflated and there is peribronchial thickening with chronic changes in both lungs. There is subsegmental atelectasis in the left lower lobe. PLEURA: No pleural effusions. There has been interval removal of the left chest tube. There is little interval change in large loculated left pneumothorax. CARDIOVASCULAR: The heart is normal in size. No aortic atherosclerotic calcification present. OSSEOUS STRUCTURES: Within normal limits for the patient's age. VISUALIZED UPPER ABDOMEN: Normal. OTHER FINDINGS: None. IMPRESSION: Status post removal of left chest tube, little interval change in large loculated left pneumothorax.
--- NOTE | 2018-03-12 08:43 | RAD ---
Date of service: 03/12/2018 HISTORY: follow up pneumothorax COMPARISON: 03/11/2018 FINDINGS: LUNGS: The lungs are hyperinflated and there is peribronchial thickening with chronic changes in both lungs. There is subsegmental atelectasis in the left lower lobe. PLEURA: Little interval change in loculated left pneumothorax with no pleural effusion. CARDIOVASCULAR: The heart is normal in size. No aortic atherosclerotic calcification present. OSSEOUS STRUCTURES: Within normal limits for the patient's age. VISUALIZED UPPER ABDOMEN: Normal. OTHER FINDINGS: None. IMPRESSION: Little interval change in loculated left pneumothorax. COPD.
--- NOTE | 2018-03-12 09:19 | CT ---
Date of service: 03/11/2018 PROCEDURE: CT Chest without contrast HISTORY: PERSISTENT PNEUMOTHORAX COMPARISON: 03/09/2018 TECHNIQUE: Contiguous axial images were obtained through the chest without intravenous contrast enhancement. Sagittal and coronal reconstructions were performed. Radiation dose: Total exam DLP = 290.17 mGy-cm. This CT exam was performed using one or more of the following dose reduction techniques: Automated exposure control, adjustment of the mA and/or kV according to patient size, and/or use of iterative reconstruction technique. FINDINGS: LUNGS: There is a persistent large loculated left pneumothorax. The pattern is unchanged. The small caliber chest tube that was previously seen within the lung parenchyma has been removed. MEDIASTINUM: Aortic tortuosity normal sized heart. Main pulmonary artery unremarkable. No vascular congestion. No lymphadenopathy. Aortic calcification PLEURA: No pleural fluid. No pneumothorax. BONES: No fracture. No destructive lesion. UPPER ABDOMEN: Grossly unremarkable. OTHER FINDINGS: The report concurs with the preliminary [facility] report IMPRESSION: Persistent large loculated left pneumothorax. The pattern is unchanged.
[2018-03-12] MEDS: Enoxaparin 40 mg Syringe SC SCH (11:18)
--- NOTE | 2018-03-12 11:58 | PN ---
DATE: 03/12/2018 PULMONARY PROGRESS NOTE REFERRING PHYSICIAN: La Aguayo MD SUBJECTIVE: The patient is lying in bed. No acute distress. Chest tube was removed. No hemoptysis, hematosis, hematuria, diarrhea, or leg swelling reported. PHYSICAL EXAMINATION: GENERAL: No acute distress. VITAL SIGNS: Blood pressure 108/73, pulse 74, temperature 98.2, and oxygen saturations 94% of room air. HEENT: Moist mucous membranes. Crowded airway. NECK: Supple, no JVD. RESPIRATORY: Decreased breath sounds on the left, few scattered rhonchi on the right. CARDIOVASCULAR: S1 and S2 audible. ABDOMEN: Soft and nontender. No distention, no organomegaly. EXTREMITIES: No bilateral lower extremity edema. NEUROLOGIC: Awake, alert, and aphasic. MEDICATIONS: Reviewed. Tylenol 650 mg every 6 hours p.r.n. fever greater than 100.4, Mucomyst 3 mL inhalation twice a day, DuoNeb 3 mL inhalation every 4 hours p.r.n., Brovana 15 mcg every 12 hours, Pulmicort 0.5 mg every 12 hours, Lovenox 40 mg subcutaneously daily, Namenda 5 mg twice a day, metoprolol tartrate 25 mg breakfast, Protonix 40 mg daily, and Zoloft 25 mg daily. LABORATORY DATA: Reviewed. No new labs since yesterday. DIAGNOSTIC DATA: Chest x-ray shows little interval change in loculated left pneumothorax, COPD. Chest CT shows persistent large loculated left pneumothorax, pattern unchanged. IMPRESSION AND PLAN: Recurrent pneumothorax requiring chest tube. Chest tube was removed by surgeon, chronic obstructive lung disease, hypertension, dementia, history of stroke. The patient is asymptomatic at this time even though chest x-ray and CT scan shows little change in left pneumothorax. We will need to follow the patient closely. Surgical team's note appreciated. Head of bed elevated at 45 degrees, aspiration precaution, continue inhaled bronchodilators. Gastric prophylaxis and deep venous thrombosis prophylaxis. This patient is seen and examined with Dr. Morgan. Discussed assessment and plan as described above. Thank you for this consult. We will follow with you. Johnathon Prudence, [employer] Chino Morgan MD [facility] # [id number]
[2018-03-12 16:57] VITALS: BP 94/51; PULSE 73; TEMP 97.7; O2SAT 95
== END 2018-03-12 18:55 | DRG 201 ==
LOC: ED 22:38 → ERH 03-08 03:17 → 3RNO 03-08 04:19
PROVIDERS: ADMIT Internal Medicine; ATTEND Internal Medicine
PROC: 0W9B30Z Drainage of Left Pleural Cavity with Drainage Device, Percutaneous Approach (ICD-10-PCS; principal; 2018-03-08)
PROC: 3E0F7GC Introduction of Other Therapeutic Substance into Respiratory Tract, Via Natural or Artificial Opening (ICD-10-PCS; 2018-03-08)
DX: J93.83 Other pneumothorax (principal); J43.9 Emphysema, unspecified; I69.320 Aphasia following cerebral infarction; I10 Essential (primary) hypertension; F03.90 Unspecified dementia, unspecified severity, without behavioral disturbance, psychotic disturbance, mood disturbance, and anxiety; Z87.891 Personal history of nicotine dependence; Z79.899 Other long term (current) drug therapy